=== PATIENT | female | born 1975 | race Caucasian/White ===

== ENCOUNTER 2019-02-15 11:34 | Inpatient (IN) | payer MEDICARE, MEDICAID ==
[~2019-02-15] VITALS: Ht 162.6 cm; Wt 92.4 kg
[2019-02-15] MEDS ORDERED: CEFTRIAXONE PMX 1GM/50ML 50 ML IVPB ONE (12:00)
[2019-02-15] MEDS ORDERED: SODIUM CHLORIDE FLUSH 10ML SYR IVF ONE (12:00)
--- NOTE | 2019-02-15 12:00 | NUR ---
PT TO ED FOR RECURRING BLE CELLULITIS FOLLOWING BROWN RECLUSE BITE LAST FALL. 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 PT STATES SHE THINKS SWELLING AND CELLULITIS IS DUE TO CUTS ON BOTTOM OF FEET. PT COMPLETED PRESCRIBED ABX YESTERDAY WTIHOUT INMPROVEMENT. PT CONNECTED TO MONITORS. VSS. EDMD PRESENT FOR ASSESSMENT. AWAITING ORDERS.
[2019-02-15 12:25] LABS: BASOPHILS # (AUTO) 0.02 x10^3/uL (0-0.1); BASOPHILS % (AUTO) 0 % (0-1); EOSINOPHILS % (AUTO) 0 % (1-7); LYMPHOCYTES # (AUTO) 2.35 x10^3/uL (1-3.4); LYMPHOCYTES % (AUTO) 39 % (22-44); MD NO; MEAN CORPUSCULAR HEMOGLOBIN 26.9 pg (27.0-34.8); MEAN CORPUSCULAR HGB CONC 32.1 g/dL (32.4-35.8); MEAN CORPUSCULAR VOLUME 83.8 fL (80-100); MEAN PLATELET VOLUME 8.2 fL (7.4-10.4); MONOCYTES # (AUTO) 0.49 x10^3/uL (0.2-0.8); MONOCYTES % (AUTO) 8 % (2-9); NEUTROPHILS # (AUTO) 3.15 x10^3/uL (1.8-6.8); NEUTROPHILS % (AUTO) 53 % (42-75); PLATELET COUNT 416 x10^3/uL (130-400); RED BLOOD COUNT 3.86 x10^6/uL (3.82-5.3); RED CELL DISTRIBUTION WIDTH 16.6 % (9.6-15.2)
[2019-02-15] MEDS ORDERED: LEVO25TA4 PO (12:26)
[2019-02-15] MEDS ORDERED: TIZA4TAB PO (12:26)
[2019-02-15] MEDS ORDERED: OMEP20TA62 PO (12:26)
[2019-02-15] MEDS ORDERED: LURA20TA PO (12:26)
[2019-02-15] MEDS ORDERED: METO25TA35 PO (12:26)
[2019-02-15] MEDS ORDERED: NALO0.4D2 PO (12:26)
[2019-02-15] MEDS ORDERED: PREG150C PO (12:26)
[2019-02-15] MEDS ORDERED: OLAN5TAB9 PO (12:26)
[2019-02-15] MEDS ORDERED: FURO20TA3 PO (12:26)
[2019-02-15] MEDS ORDERED: GABA300C10 PO (12:26)
[2019-02-15] MEDS ORDERED: AMIT150T PO (12:26)
[2019-02-15] MEDS ORDERED: POTA20TA6 PO (12:26)
--- NOTE | 2019-02-15 12:27 | NUR ---
PT RESTING IN ROOM. IV ESTABLISHED. LABS AND BC X2 COLLECTED. AWAITING RESULTS. NO NEEDS EXPRESSED. CALL LIGHT WITHIN REACH. PLAN TO ADM.
[2019-02-15 12:34] LABS: ALBUMIN 3.2 g/dL (3.4-5.0); ANION GAP 6 mmol/L (5-15); CALCIUM 8.7 mg/dL (8.5-10.1); CHLORIDE 107 mmol/L (98-107); CREATININE 0.84 mg/dL (0.55-1.02)
[2019-02-15] MEDS ORDERED: CEFTRIAXONE PMX 1GM/50ML 50 ML ONE (12:35)
--- NOTE | 2019-02-15 13:42 | NUR ---
PT RESTING IN ROOM. NO NEEDS EXPRESSED. CALL LIGHT WITHIN REACH. PLAN TO ADM. AWAITING ROOM ASSIGNMENT.
[2019-02-15] MEDS ORDERED: POLYETHYLENE GLYCOL 17 GM PACKET PO PRN (14:00)
[2019-02-15] MEDS ORDERED: ACETAMINOPHEN 325 MG TABLET PO PRN (14:00)
[2019-02-15] MEDS ORDERED: NALOXONE 0.4 MG/ML, 1ML SQ PRN (14:00)
[2019-02-15] MEDS ORDERED: ENALAPRILAT 1.25 MG/ML, 2ML IVPush PRN (14:00)
[2019-02-15] MEDS ORDERED: ONDANSETRON ODT 4 MG PO PRN (14:00)
[2019-02-15 14:21] LABS: HCT (SEDRATE) 32.4 % (34.6-47.8)
--- NOTE | 2019-02-15 14:37 | NUR ---
PT RESTING IN ROOM. NO NEEDS EXPRESSED. CALL LIGHT WITHIN REACH. PLAN TO ADM. AWAITING ROOM ASSIGNMENT.
--- NOTE | 2019-02-15 14:57 | NUR ---
report to jocy vazquez. pt being transferred now.
[2019-02-15 15:03] VITALS: BP 132/90
[2019-02-15] MEDS: TIZANIDINE 4MG TABLET PO SCH ×2 (17:01→22:44)
[2019-02-15] MEDS: PREGABALIN 150 MG CAPSULE PO SCH ×2 (17:01→22:44)
[2019-02-15] MEDS: ENOXAPARIN 40 MG/0.4 ML SQ SCH (17:01)
[2019-02-15] MEDS ORDERED: LEFLUNOMIDE 20 MG TABLET ONE (18:03)
[2019-02-15] MEDS: LURASIDONE 20 MG TABLET PO SCH (18:15)
[2019-02-15 20:34] VITALS: BP 128/87
[2019-02-15] MEDS: OMEPRAZOLE 20 MG CAPSULE.DR PO SCH (21:40)
[2019-02-15] MEDS: AMITRIPTYLINE 75 MG TABLET PO SCH (21:40)
[2019-02-15 23:00] VITALS: BP 119/83
[2019-02-16 01:20] VITALS: BP 100/75
[2019-02-16 05:13] LABS: ANION GAP 1 mmol/L (5-15); CALCIUM 8.7 mg/dL (8.5-10.1); CHLORIDE 106 mmol/L (98-107); CREATININE 0.78 mg/dL (0.55-1.02)
[2019-02-16 05:16] LABS: MEAN PLATELET VOLUME 8.4 fL (7.4-10.4); PLATELET COUNT 343 x10^3/uL (130-400); RED BLOOD COUNT 3.51 x10^6/uL (3.82-5.3); RED CELL DISTRIBUTION WIDTH 17.1 % (9.6-15.2)
[2019-02-16 05:48] VITALS: BP 123/81
[2019-02-16] MEDS: METOPROLOL TARTRATE 25 MG TABLET PO SCH ×2 (05:51→16:30)
[2019-02-16 05:53] LABS: BASOPHILS # (AUTO) 0.02 x10^3/uL (0-0.1); BASOPHILS % (AUTO) 1 % (0-1); EOSINOPHILS # (AUTO) 0.01 x10^3/uL (0-0.4); EOSINOPHILS % (AUTO) 0 % (1-7); LYMPHOCYTES # (AUTO) 1.84 x10^3/uL (1-3.4); LYMPHOCYTES % (AUTO) 54 % (22-44); MD SCAN; MONOCYTES # (AUTO) 0.33 x10^3/uL (0.2-0.8); MONOCYTES % (AUTO) 10 % (2-9); NEUTROPHILS # (AUTO) 1.19 x10^3/uL (1.8-6.8); NEUTROPHILS % (AUTO) 35 % (42-75)
[2019-02-16 07:16] VITALS: BP 112/77
[2019-02-16] MEDS: TIZANIDINE 4MG TABLET PO SCH ×4 (08:04→21:16)
[2019-02-16] MEDS: POTASSIUM CHLORIDE 20 MEQ TAB.ER.PRT PO SCH (08:04)
[2019-02-16] MEDS: PREGABALIN 150 MG CAPSULE PO SCH ×3 (08:04→21:16)
[2019-02-16] MEDS: OMEPRAZOLE 20 MG CAPSULE.DR PO SCH ×2 (08:04→21:16)
[2019-02-16] MEDS: FUROSEMIDE 40 MG TABLET PO SCH (08:04)
[2019-02-16] MEDS: LEVOTHYROXINE 25 MCG TABLET PO SCH (08:05)
[2019-02-16] MEDS ORDERED: FUROSEMIDE 20 MG/2 ML IV ONE (08:30)
[2019-02-16] MEDS ORDERED: GABAPENTIN 300 MG CAPSULE PO SCH (09:00)
[2019-02-16 13:06] VITALS: BP 110/59
[2019-02-16] MEDS ORDERED: CEFTRIAXONE PMX 2GM/50ML 50 ML IV SCH (14:00)
[2019-02-16] MEDS: ENOXAPARIN 40 MG/0.4 ML SQ SCH (16:30)
[2019-02-16 18:57] VITALS: BP 123/83
[2019-02-16] MEDS: LURASIDONE 20 MG TABLET PO SCH (21:16)
[2019-02-16] MEDS: AMITRIPTYLINE 75 MG TABLET PO SCH (21:17)
[2019-02-17 02:32] VITALS: BP 118/81
[2019-02-17] MEDS: TIZANIDINE 4MG TABLET PO SCH ×2 (05:51→12:08)
[2019-02-17] MEDS: METOPROLOL TARTRATE 25 MG TABLET PO SCH (05:51)
[2019-02-17 07:02] VITALS: BP 124/76
[2019-02-17] MEDS: FUROSEMIDE 40 MG TABLET PO SCH (09:35)
[2019-02-17] MEDS: LEVOTHYROXINE 25 MCG TABLET PO SCH (09:35)
[2019-02-17] MEDS: POTASSIUM CHLORIDE 20 MEQ TAB.ER.PRT PO SCH (09:35)
[2019-02-17] MEDS: PREGABALIN 150 MG CAPSULE PO SCH (09:35)
[2019-02-17] MEDS: OMEPRAZOLE 20 MG CAPSULE.DR PO SCH (09:35)
== END 2019-02-17 16:19 | disposition home health service (06) | DRG 300 ==
LOC: ED 13:40 → 3NW 13:41 → 3NE 02-16 00:05
PROVIDERS: ADMIT Family Medicine; ATTEND Family Medicine
DX: I87.2 Venous insufficiency (chronic) (peripheral) (principal); L03.116 Cellulitis of left lower limb; L03.115 Cellulitis of right lower limb; E03.9 Hypothyroidism, unspecified; F31.9 Bipolar disorder, unspecified; G47.00 Insomnia, unspecified; G89.29 Other chronic pain; I10 Essential (primary) hypertension; I87.8 Other specified disorders of veins; K21.9 Gastro-esophageal reflux disease without esophagitis; Z79.891 Long term (current) use of opiate analgesic; Z81.8 Family history of other mental and behavioral disorders; Z86.14 Personal history of Methicillin resistant Staphylococcus aureus infection; Z88.8 Allergy status to other drugs, medicaments and biological substances
CPT/HCPCS: 36415; 80048; 82040; 83605; 85025; 85651; 86140; 87040; 96374; 99285; G0378; J0696; J1650; Q0162; J1940

== ENCOUNTER 2019-03-01 15:02 | Emergency (ER) | payer MEDICARE, MEDICAID ==
[~2019-03-01] VITALS: Ht 162.6 cm; Wt 98.5 kg
[~2019-03-01 15:02] MED LIST: AMIT150T PO; FURO20TA3 PO; GABA300C10 PO; LEVO25TA4 PO; LURA20TA PO; METO25TA35 PO; NALO0.4D2 PO; OLAN5TAB9 PO; OMEP20TA62 PO; POTA20TA6 PO; PREG150C PO; TIZA4TAB PO
--- NOTE | 2019-03-01 15:31 | NUR ---
R FAMILY MED DR CARMICHAEL SENT PT HERE DUE TO LE SWELLING. PT HAS AN INTERNAL PAIN PUMP AND IS HAVING A DIFFICULT TIME STAYING AWAKE. PT IS HARD TO UNDERSTAND BECAUSE HER SPEECH IS LOW AND SLURRED. DR LUCIA ROUNDED. NAD. SERVICE DOG AT BEDSIDE.
[2019-03-01] MEDS ORDERED: vitamin d (15:53)
[2019-03-01] MEDS ORDERED: ONDA4TAB7 PO (15:55)
[2019-03-01] MEDS ORDERED: GABA300C10 PO (15:55)
[2019-03-01] MEDS ORDERED: voltaren (15:56)
[2019-03-01 15:57] LABS: BASOPHILS # (AUTO) 0.02 x10^3/uL (0-0.1); BASOPHILS % (AUTO) 1 % (0-1); EOSINOPHILS # (AUTO) 0.01 x10^3/uL (0-0.4); EOSINOPHILS % (AUTO) 0 % (1-7); LYMPHOCYTES # (AUTO) 1.62 x10^3/uL (1-3.4); LYMPHOCYTES % (AUTO) 37 % (22-44); MD NO; MEAN CORPUSCULAR HEMOGLOBIN 27.7 pg (27.0-34.8); MEAN CORPUSCULAR HGB CONC 33.1 g/dL (32.4-35.8); MEAN CORPUSCULAR VOLUME 83.7 fL (80-100); MEAN PLATELET VOLUME 8.6 fL (7.4-10.4); MONOCYTES % (AUTO) 9 % (2-9); NEUTROPHILS # (AUTO) 2.35 x10^3/uL (1.8-6.8); NEUTROPHILS % (AUTO) 53 % (42-75); PLATELET COUNT 280 x10^3/uL (130-400); RED BLOOD COUNT 3.66 x10^6/uL (3.82-5.3); RED CELL DISTRIBUTION WIDTH 16.7 % (9.6-15.2)
[2019-03-01] MEDS ORDERED: morphine (16:01)
[2019-03-01 16:05] LABS: INTERNATIONAL NORMALIZED RATIO 0.97 (0.93-1.1); PROTHROMBIN TIME 10.2 Seconds (9.6-11.5)
[2019-03-01 16:06] LABS: ALANINE AMINOTRANSFERASE 78 U/L (12-78); ALBUMIN 3.4 g/dL (3.4-5.0); ANION GAP 9 mmol/L (5-15); CALCIUM 8.5 mg/dL (8.5-10.1); CHLORIDE 104 mmol/L (98-107); CREATININE 0.84 mg/dL (0.55-1.02)
[2019-03-01 16:10] LABS: ALKALINE PHOSPHATASE 291 U/L (45-117); BILIRUBIN,TOTAL 0.4 mg/dL (0.2-1.0); TOTAL PROTEIN 7.5 g/dL (6.4-8.2)
[2019-03-01 16:55] VITALS: BP 140/86
--- NOTE | 2019-03-01 16:56 | NUR ---
Patient is resting comfortably in bed. Vital Signs within normal limits.
== END 2019-03-01 17:45 | disposition home or self-care (01) ==
LOC: ED 17:39
DX: R60.0 Localized edema (principal); G89.29 Other chronic pain; E03.9 Hypothyroidism, unspecified; K21.9 Gastro-esophageal reflux disease without esophagitis; F31.9 Bipolar disorder, unspecified
CPT/HCPCS: 36415; 80053; 83880; 85025; 85610; 85730; 93005; 93970; 99284

== ENCOUNTER 2019-06-14 05:02 | Emergency (ER) | payer MEDICARE, MEDICAID ==
[~2019-06-14] VITALS: Ht 162.6 cm; Wt 105.0 kg
[~2019-06-14 05:02] MED LIST changes: +ONDA4TAB7 PO; -TIZA4TAB PO; +TIZA4TAB2 PO; +morphine; +vitamin d; +voltaren
[2019-06-14 06:22] LABS: BASOPHILS # (AUTO) 0.01 x10^3/uL (0-0.1); BASOPHILS % (AUTO) 0 % (0-1); EOSINOPHILS # (AUTO) 0.09 x10^3/uL (0-0.4); EOSINOPHILS % (AUTO) 2 % (1-7); LYMPHOCYTES # (AUTO) 0.86 x10^3/uL (1-3.4); LYMPHOCYTES % (AUTO) 16 % (22-44); MD NO; MEAN CORPUSCULAR HEMOGLOBIN 25.5 pg (27.0-34.8); MEAN CORPUSCULAR VOLUME 79.6 fL (80-100); MEAN PLATELET VOLUME 8.8 fL (7.4-10.4); MONOCYTES # (AUTO) 0.31 x10^3/uL (0.2-0.8); MONOCYTES % (AUTO) 6 % (2-9); NEUTROPHILS # (AUTO) 4.24 x10^3/uL (1.8-6.8); NEUTROPHILS % (AUTO) 77 % (42-75); PLATELET COUNT 239 x10^3/uL (130-400); RED BLOOD COUNT 4.44 x10^6/uL (3.82-5.3); RED CELL DISTRIBUTION WIDTH 18.3 % (9.6-15.2)
[2019-06-14 06:33] LABS: ALBUMIN 3.4 g/dL (3.4-5.0); ANION GAP 6 mmol/L (5-15); CALCIUM 8.5 mg/dL (8.5-10.1); CHLORIDE 104 mmol/L (98-107)
[2019-06-14 06:42] LABS: ALANINE AMINOTRANSFERASE 63 U/L (12-78); ALKALINE PHOSPHATASE 198 U/L (45-117); BILIRUBIN,TOTAL 0.3 mg/dL (0.2-1.0); CREATININE 1.14 mg/dL (0.55-1.02); TOTAL PROTEIN 7.9 g/dL (6.4-8.2)
[2019-06-14 06:43] LABS: SALICYLATE LEVEL < 1.7 mg/dL (2.8-20.0)
--- NOTE | 2019-06-14 07:03 | NUR ---
LATE NOTE ENTRY DUE TO PT CARE. Received report from GOSIA Snell. All questions answered. Assuming care of pt at this time. Pt resting on gurney connected to NIBP cuff, continous pulse ox, and heading machine operator. Call light within reach. Pt c/o "pain and cramping starting to creep up again." EDMD at bedside. NADN. No other needs expressed. Addendum: 06/14/19 at 0705 by [facility] Prior note charted on wrong pt.
--- NOTE | 2019-06-14 07:06 | NUR ---
Prior note charted on wrong pt.
--- NOTE | 2019-06-14 07:06 | NUR ---
LATE NOTE ENTRY DUE TO PT CARE. Pt resting with eyes closed supine on gurney. Pt arousable to physical stimuli. Pt has unlabored respirations with even chest rise and fall. NADN. Pt connected to NIBP cuff, continous pulse ox, and traffic monitor specialist. Bedrails up x 2 and call light within reach. No needs expressed at this time.
[2019-06-14 07:19] LABS: AMPHETAMINE SCREEN, URINE Negative (Negative); BARBITURATE SCREEN, URINE Negative (Negative); BENZODIAZEPINE SCREEN, URINE Negative (Negative); CANNABINOID SCREEN, URINE Positive (Negative); COCAINE SCREEN, URINE Negative (Negative); METHADONE SCREEN, URINE Negative (Negative); OPIATE SCREEN, URINE Positive (Negative)
[2019-06-14 07:23] LABS: MICROSCOPIC INDICATED
[2019-06-14 07:29] LABS: CULTURE INDICATED? YES
--- NOTE | 2019-06-14 08:53 | NUR ---
Pt remains asleep supine on gurney with bedrails up x 2 and call light within reach. Pt remains connected to NIBP cuff, continous pulse ox, and casino floor runner. NADN. No needs expressed.
[2019-06-14 09:31] VITALS: BP 124/85
--- NOTE | 2019-06-14 10:24 | NUR ---
Pt AOX4 and ambulates with steady gait and balance. Pt requesting to speak to MD regarding, "I think I have celulitis coming back in my legs." EDMD aware.
--- NOTE | 2019-06-14 10:49 | NUR ---
Provided pt taxi voucher. Provided pt d/c paperwork. Patient given discharge instructions and they have confirmed that they understand the instructions. Pt getting dressed in ED room. NADN. No other needs expressed.
== END 2019-06-14 10:52 | disposition home or self-care (01) ==
LOC: ED 10:30
DX: G93.40 Encephalopathy, unspecified (principal); R55 Syncope and collapse
CPT/HCPCS: 36415; 70450; 80053; 80307; 81001; 82140; 83735; 84439; 84443; 85025; 87086; 87147; 93005; 99284

== ENCOUNTER 2019-08-14 18:42 | Emergency (ER) | payer MEDICARE, MEDICAID ==
[~2019-08-14] VITALS: Ht 162.6 cm; Wt 101.4 kg
[~2019-08-14 18:42] MED LIST changes: +GABA800T5 PO; +LURA60TA PO
--- NOTE | 2019-08-14 19:22 | NUR ---
PT C/O RIGHT SHOULDER AND ELBOW PAIN STARTING THIS AM. PT DENIES TRAUMA, PT REPORTS HX OF NEUROPATHIES AND SPINAL SURGERIES. REPORTS PAIN WITH MOVEMENT, ROM LIMITED WITH STIFFNESS. PT PLACED ON MONITORING, BED IN LOW POSITION, X2 RAILS RAISED, CALL LIGHT WITHIN REACH.
--- NOTE | 2019-08-14 19:24 | NUR ---
IMAGING IN ROOM AT THIS TIME.
[2019-08-14] MEDS ORDERED: SODIUM CHLORIDE FLUSH 10ML SYR IVF ONE (19:30)
--- NOTE | 2019-08-14 19:52 | NUR ---
LAB IN ROOM AT THIS TIME.
--- NOTE | 2019-08-14 20:02 | NUR ---
PT UPDATED ON POC, AWAITING LABS AND IMAGING RESULTS. ALL MONITORING IN PLACE, CALL LIGHT WITHIN REACH, FAMILY AT BS FOR SUPPORT.
[2019-08-14 20:03] LABS: BASOPHILS # (AUTO) 0.06 x10^3/uL (0-0.1); BASOPHILS % (AUTO) 1 % (0-1); EOSINOPHILS # (AUTO) 0.14 x10^3/uL (0-0.4); EOSINOPHILS % (AUTO) 3 % (1-7); LYMPHOCYTES # (AUTO) 1.77 x10^3/uL (1-3.4); LYMPHOCYTES % (AUTO) 30 % (22-44); MD NO; MEAN CORPUSCULAR HEMOGLOBIN 26.3 pg (27.0-34.8); MEAN CORPUSCULAR HGB CONC 31.8 g/dL (32.4-35.8); MEAN CORPUSCULAR VOLUME 82.5 fL (80-100); MEAN PLATELET VOLUME 8.1 fL (7.4-10.4); MONOCYTES # (AUTO) 0.57 x10^3/uL (0.2-0.8); MONOCYTES % (AUTO) 10 % (2-9); NEUTROPHILS # (AUTO) 3.34 x10^3/uL (1.8-6.8); NEUTROPHILS % (AUTO) 57 % (42-75); PLATELET COUNT 303 x10^3/uL (130-400); RED BLOOD COUNT 4.13 x10^6/uL (3.82-5.3); RED CELL DISTRIBUTION WIDTH 18.5 % (9.6-15.2)
[2019-08-14 20:13] LABS: ALANINE AMINOTRANSFERASE 91 U/L (12-78); ALBUMIN 3.1 g/dL (3.4-5.0); ANION GAP 6 mmol/L (5-15); C-REACTIVE PROTEIN, QUANT 0.76 mg/dL (0.02-0.49); CALCIUM 8.7 mg/dL (8.5-10.1); CHLORIDE 109 mmol/L (98-107); CREATININE 0.82 mg/dL (0.55-1.02)
[2019-08-14 20:15] LABS: ALKALINE PHOSPHATASE 332 U/L (45-117); BILIRUBIN,TOTAL 0.2 mg/dL (0.2-1.0); TOTAL PROTEIN 7.2 g/dL (6.4-8.2)
[2019-08-14] MEDS ORDERED: CLINDAMYCIN 150 MG/ML, 6ML IM ONE (21:30)
[2019-08-14] MEDS ORDERED: CLINDAMYCIN PMX 600MG/50ML 0 ML ONE (21:54)
[2019-08-14] MEDS ORDERED: CLINDAMYCIN 150 MG/ML, 6ML ONE (22:18)
[2019-08-14] MEDS ORDERED: DIPH,PERTUSS(ACELL),TET VAC/PF 0.5 ML IM-VACC ONE ×2 (22:20→22:30)
[2019-08-14 22:46] VITALS: BP 155/89
== END 2019-08-14 22:47 | disposition home or self-care (01) ==
LOC: ED 21:01
DX: L03.113 Cellulitis of right upper limb (principal); K21.9 Gastro-esophageal reflux disease without esophagitis; G89.29 Other chronic pain; Z72.89 Other problems related to lifestyle
CPT/HCPCS: 36415; 73030; 80053; 83605; 84145; 85025; 85651; 86140; 87040; 90471; 90715; 96372; 99284; S0077

== ENCOUNTER 2019-08-18 23:09 | Inpatient (IN) | payer MEDICARE, MEDICAID ==
[~2019-08-18] VITALS: Ht 154.9 cm; Wt 99.6 kg
[2019-08-18] MEDS ORDERED: ALBUTEROL/IPRATROPIUM 2.5MG/0.5MG, 3 ML ONE (23:27)
[2019-08-18] MEDS ORDERED: methylPREDNISolone SOD SUCC 125 MG/2 ML IV ONE (23:30)
[2019-08-18 23:52] LABS: MEAN CORPUSCULAR HEMOGLOBIN 26.3 pg (27.0-34.8); MEAN CORPUSCULAR HGB CONC 31.6 g/dL (32.4-35.8); MEAN CORPUSCULAR VOLUME 83.2 fL (80-100); MEAN PLATELET VOLUME 8.5 fL (7.4-10.4); PLATELET COUNT 335 x10^3/uL (130-400); RED BLOOD COUNT 4.23 x10^6/uL (3.82-5.3); RED CELL DISTRIBUTION WIDTH 18.7 % (9.6-15.2)
[2019-08-19 00:03] LABS: ANION GAP 8 mmol/L (5-15); CALCIUM 8.9 mg/dL (8.5-10.1); CHLORIDE 105 mmol/L (98-107); CREATININE 1.55 mg/dL (0.55-1.02)
[2019-08-19 00:04] LABS: ALANINE AMINOTRANSFERASE 66 U/L (12-78); ALBUMIN 3.1 g/dL (3.4-5.0)
[2019-08-19 00:08] LABS: ALKALINE PHOSPHATASE 206 U/L (45-117); BILIRUBIN,TOTAL 0.4 mg/dL (0.2-1.0); TOTAL PROTEIN 8.1 g/dL (6.4-8.2); TROPONIN I < 0.015 ng/mL (0.000-0.045)
[2019-08-19 00:16] LABS: MD YES
[2019-08-19 00:18] LABS: BAND#(MANUAL) 0.14 x10^3/uL; BANDS%(MANUAL) 1 % (0-7); LYMPH#(MANUAL) 2.19 x10^3/uL (1-3.4); LYMPHS% (MANUAL) 16 % (22-44); MONOS#(MANUAL) 0.55 x10^3/uL (0.3-2.7); MONOS% (MANUAL) 4 % (2-9); SEG#(MANUAL) 10.82 x10^3/uL (1.8-6.8); SEGS% (MANUAL) 79 % (42-75)
[2019-08-19 00:19] LABS: <PLATELET ESTIMATE> ADEQUATE; <PLT MORPHOLOGY> NORMAL PLT MORPH; ANISOCYTOSIS 1+
[2019-08-19] MEDS ORDERED: CEFTRIAXONE PMX 1GM/50ML 50 ML ONE (00:30)
[2019-08-19] MEDS ORDERED: AZITHROMYCIN 500 MG in SODIUM CHLORIDE 0.9% 250 ML IV ONE (00:30)
[2019-08-19] MEDS ORDERED: CEFTRIAXONE PMX 1GM/50ML 50 ML IV ONE (00:30)
[2019-08-19] MEDS ORDERED: methylPREDNISolone SOD SUCC 125 MG/2 ML ONE (00:30)
--- NOTE | 2019-08-19 00:33 | NUR ---
PT BECOMING MORE SOMULENT, REQUIRING CONTINUAL PAINFUL STIMULI TO WAKE UP, EVEN WITH THIS, PT RESPONSE IS MINIMAL. ERP AWARE, ORDERS PLACED. NO WOUNDS ON HEAD NOTED.
[2019-08-19] MEDS ORDERED: NALOXONE 1 MG/ML, 2ML ONE (01:33)
[2019-08-19] MEDS ORDERED: ONDANSETRON 2MG/ML, 2ML ONE (01:36)
[2019-08-19] MEDS ORDERED: LORazepam 2 MG/ML, 1ML ONE (01:39)
--- NOTE | 2019-08-19 01:40 | NUR ---
TASK RN: TAKEN TO CT ON MONITORING. PT WITH MILDLY LABORED RESPIRATIONS AND NOT RESPONSIVE TO NOXIOUS STIMULI. RR 12, SPO2 >90% ON 10L BY OXYMASK. ERP AWARE. PT GIVEN 2MG NARCAN WITH POSITIVE EFFECT. PT NOW YELLING "I THINK I'M BROKEN". GIVEN 2MG ZOFRAN AND 1MG ATIVAN. PRIMARY RN AWARE. Addendum: 08/19/19 at 0142 by LWEGROSARIO SECOND ABX INITIATED. BC X2 DRAWN PRIOR TO ADMIN. LITER BOLUS HUNG PER ERP ORDER FOR SBP 90'S.
[2019-08-19] MEDS ORDERED: LORazepam 2 MG/ML, 1ML IVPush ONE ×2 (02:00→07:00)
[2019-08-19] MEDS ORDERED: ONDANSETRON 2MG/ML, 2ML IVPush ONE (02:00)
[2019-08-19] MEDS ORDERED: NALOXONE 1 MG/ML, 2ML IVPush ONE (02:00)
--- NOTE | 2019-08-19 02:00 | NUR ---
PT ANXIOUS, BABBLING AND RESTLESS AFTER NARCAN ADMIN. PT MEDICATED WITH ORDERED ANTI-ANXIETY. PT FOLLOWING COMMANDS BETTER. PT REPOSITIONED PT NOW WHEEZING AUDIBLY, LUNG SOUNDS ARE CLEAR HOWEVER. PT AWARE OF SELF AND LOCATION. BILAT BEDRAILS UP.
--- NOTE | 2019-08-19 02:39 | NUR ---
HOSPITALIST AT BEDSIDE FOR PATIENT EVALUATION AND TO WRITE ADMISSION ORDERS.
[2019-08-19] MEDS ORDERED: SODIUM CHLORIDE 0.9% 1,000ML IVBOLUS ONE (03:00)
[2019-08-19] MEDS ORDERED: POLYETHYLENE GLYCOL 17 GM PACKET PO PRN (03:00)
[2019-08-19] MEDS ORDERED: IBUPROFEN 600 MG TABLET PO PRN (03:00)
[2019-08-19] MEDS ORDERED: morphine SULFATE 10 MG/ML, 1ML IVPush PRN (03:00)
[2019-08-19] MEDS ORDERED: KETOROLAC 30 MG/1 ML IV PRN (03:00)
[2019-08-19] MEDS ORDERED: LABETALOL 5 MG/ML SYR. (IV ONLY) IVPush PRN (03:00)
[2019-08-19] MEDS ORDERED: ENALAPRILAT 1.25 MG/ML, 2ML IVPush PRN (03:00)
[2019-08-19] MEDS ORDERED: BISACODYL 10 MG SUPP PR PRN (03:00)
[2019-08-19] MEDS ORDERED: ONDANSETRON ODT 4 MG PO PRN (03:00)
--- NOTE | 2019-08-19 03:10 | NUR ---
PATIENT TO XRAY FOR ABDOMINAL XRAY.
--- NOTE | 2019-08-19 03:22 | NUR ---
BACK FROM X RAY. PATIENT STILL ON 10LITERS OXYGEN. VSS.
[2019-08-19] MEDS ORDERED: ALBUTEROL SULFATE 2.5 MG/3 ML NPPB PRN (03:30)
--- NOTE | 2019-08-19 03:40 | NUR ---
JAI CALLED TO MARCE ELISE
[2019-08-19] MEDS ORDERED: NALOXONE 0.4 MG/ML, 1ML ONE (03:57)
[2019-08-19] MEDS ORDERED: NALOXONE 0.4 MG/ML, 1ML IVPush ONE (04:00)
[2019-08-19] MEDS ORDERED: NALOXONE 0.4 MG/ML, 1ML IVPush PRN (04:30)
[2019-08-19] MEDS: METRONIDAZOLE PMX 500MG/100ML 100 ML IV SCH ×3 (05:00→20:45)
[2019-08-19] MEDS: NS + 20MEQ KCL 1,000 ML IV SCH ×2 (05:00→15:26)
[2019-08-19] MEDS: HEPARIN 5,000 UNITS/ML, 1ML SQ SCH ×3 (05:01→20:18)
[2019-08-19 05:25] LABS: AMPHETAMINE SCREEN, URINE Negative (Negative); BARBITURATE SCREEN, URINE Negative (Negative); BENZODIAZEPINE SCREEN, URINE Negative (Negative); CANNABINOID SCREEN, URINE Positive (Negative); COCAINE SCREEN, URINE Negative (Negative); METHADONE SCREEN, URINE Negative (Negative); OPIATE SCREEN, URINE Positive (Negative)
[2019-08-19] MEDS ORDERED: LURA40TA PO (05:57)
[2019-08-19] MEDS ORDERED: AMIT10TA PO (05:57)
[2019-08-19] MEDS ORDERED: LEVOTHYROXINE 25 MCG TABLET PO SCH (06:00)
[2019-08-19] MEDS ORDERED: LURASIDONE HCL 60 MG PO SCH ×2 (06:00→09:00)
[2019-08-19] MEDS ORDERED: benzatropine PO (06:03)
[2019-08-19] MEDS ORDERED: DIPH25CA61 PO (06:03)
[2019-08-19] MEDS ORDERED: CLIN300C8 PO (06:03)
[2019-08-19] MEDS ORDERED: PREG75CA PO (06:03)
[2019-08-19] MEDS ORDERED: TIZA6CAP PO (06:03)
[2019-08-19 08:13] VITALS: BP 141/93
[2019-08-19] MEDS ORDERED: FUROSEMIDE 20 MG TABLET PO SCH (09:00)
[2019-08-19] MEDS ORDERED: GABAPENTIN 400 MG CAPSULE PO SCH (09:00)
[2019-08-19 10:20] VITALS: BP 139/88
[2019-08-19] MEDS: SENNA/DOCUSATE TABLET PO SCH (10:24)
[2019-08-19] MEDS: OMEPRAZOLE 20 MG CAPSULE.DR PO SCH ×2 (10:24→20:18)
[2019-08-19] MEDS: METOPROLOL TARTRATE 25 MG TABLET PO SCH ×2 (10:24→20:18)
[2019-08-19] MEDS: DOCUSATE 100 MG CAPSULE PO PRN ×2 (10:24→20:18)
[2019-08-19 11:57] VITALS: BP 134/87
[2019-08-19 14:26] LABS: RAPID INFLUENZA A Negative (Negative); RAPID INFLUENZA B Negative (Negative)
[2019-08-19] MEDS: LORazepam 1MG TABLET PO PRN (16:24)
[2019-08-19 18:45] VITALS: BP 113/77
[2019-08-19] MEDS ORDERED: AMITRIPTYLINE 50 MG TABLET ONE (20:01)
[2019-08-19] MEDS: AMITRIPTYLINE 75 MG TABLET PO SCH (20:19)
[2019-08-19] MEDS: GABAPENTIN 400 MG CAPSULE PO SCH (21:00)
[2019-08-19] MEDS ORDERED: AMITRIPTYLINE HCL PO SCH (21:00)
[2019-08-20] MEDS: NS + 20MEQ KCL 1,000 ML IV SCH ×2 (01:33→10:49)
[2019-08-20] MEDS: CEFTRIAXONE PMX 2GM/50ML 50 ML IV SCH (01:36)
[2019-08-20 01:59] VITALS: BP 131/88
[2019-08-20 04:48] LABS: BASOPHILS # (AUTO) 0.02 x10^3/uL (0-0.1); BASOPHILS % (AUTO) 0 % (0-1); EOSINOPHILS % (AUTO) 2 % (1-7); LYMPHOCYTES % (AUTO) 18 % (22-44); MD NO; MEAN CORPUSCULAR HEMOGLOBIN 26.8 pg (27.0-34.8); MEAN CORPUSCULAR HGB CONC 31.7 g/dL (32.4-35.8); MEAN CORPUSCULAR VOLUME 84.3 fL (80-100); MONOCYTES # (AUTO) 0.53 x10^3/uL (0.2-0.8); MONOCYTES % (AUTO) 6 % (2-9); NEUTROPHILS # (AUTO) 6.54 x10^3/uL (1.8-6.8); NEUTROPHILS % (AUTO) 74 % (42-75); PLATELET COUNT 273 x10^3/uL (130-400); RED BLOOD COUNT 3.45 x10^6/uL (3.82-5.3); RED CELL DISTRIBUTION WIDTH 18.9 % (9.6-15.2)
[2019-08-20 04:58] LABS: ALBUMIN 2.4 g/dL (3.4-5.0); ANION GAP 5 mmol/L (5-15); CALCIUM 8.3 mg/dL (8.5-10.1); CHLORIDE 112 mmol/L (98-107)
[2019-08-20] MEDS: HEPARIN 5,000 UNITS/ML, 1ML SQ SCH ×3 (05:00→20:30)
[2019-08-20 05:02] LABS: ALANINE AMINOTRANSFERASE 39 U/L (12-78); ALKALINE PHOSPHATASE 145 U/L (45-117); BILIRUBIN,TOTAL 0.4 mg/dL (0.2-1.0); CREATININE 0.57 mg/dL (0.55-1.02); TOTAL PROTEIN 6.4 g/dL (6.4-8.2)
[2019-08-20] MEDS: METRONIDAZOLE PMX 500MG/100ML 100 ML IV SCH ×3 (05:29→20:21)
[2019-08-20] MEDS: LEVOTHYROXINE 25 MCG TABLET PO SCH (06:41)
[2019-08-20] MEDS: TIZANIDINE 4MG TABLET PO SCH ×4 (06:41→20:29)
[2019-08-20] MEDS: GABAPENTIN 400 MG CAPSULE PO SCH ×3 (06:41→20:29)
[2019-08-20 08:16] VITALS: BP 144/94
[2019-08-20] MEDS: LURASIDONE HCL 60 MG PO SCH (09:00)
[2019-08-20] MEDS: OMEPRAZOLE 20 MG CAPSULE.DR PO SCH ×2 (10:50→20:29)
[2019-08-20] MEDS: METOPROLOL TARTRATE 25 MG TABLET PO SCH ×2 (10:50→20:29)
[2019-08-20] MEDS: SENNA/DOCUSATE TABLET PO SCH (10:51)
[2019-08-20] MEDS: AZITHROMYCIN 500 MG TABLET PO SCH (10:51)
[2019-08-20 12:49] VITALS: BP 131/90
[2019-08-20] MEDS: GUAIFENESIN 200 MG TABLET PO SCH ×3 (13:11→20:29)
[2019-08-20 18:54] VITALS: BP 152/90
[2019-08-20] MEDS: AMITRIPTYLINE 75 MG TABLET PO SCH (20:28)
[2019-08-21] MEDS: CEFTRIAXONE PMX 2GM/50ML 50 ML IV SCH (00:55)
[2019-08-21 01:24] VITALS: BP 140/94
[2019-08-21] MEDS ORDERED: NS + 20MEQ KCL 1,000 ML IV SCH (02:44)
[2019-08-21] MEDS: ACETAMINOPHEN 325 MG TABLET PO PRN ×3 (03:42→16:37)
[2019-08-21] MEDS: LORazepam 1MG TABLET PO PRN ×3 (03:48→18:45)
[2019-08-21] MEDS: METRONIDAZOLE PMX 500MG/100ML 100 ML IV SCH ×3 (05:04→21:12)
[2019-08-21] MEDS: TIZANIDINE 4MG TABLET PO SCH ×4 (05:05→21:13)
[2019-08-21] MEDS: LEVOTHYROXINE 25 MCG TABLET PO SCH (05:05)
[2019-08-21] MEDS: HEPARIN 5,000 UNITS/ML, 1ML SQ SCH ×3 (05:06→21:13)
[2019-08-21] MEDS: GUAIFENESIN 200 MG TABLET PO SCH ×4 (06:00→21:13)
[2019-08-21 06:51] LABS: ANION GAP 5 mmol/L (5-15); CALCIUM 8.4 mg/dL (8.5-10.1); CHLORIDE 106 mmol/L (98-107); CREATININE 0.54 mg/dL (0.55-1.02)
[2019-08-21 06:58] LABS: BASOPHILS % (AUTO) 2 % (0-1); EOSINOPHILS # (AUTO) 0.24 x10^3/uL (0-0.4); EOSINOPHILS % (AUTO) 4 % (1-7); LYMPHOCYTES # (AUTO) 1.59 x10^3/uL (1-3.4); LYMPHOCYTES % (AUTO) 23 % (22-44); MD NO; MEAN CORPUSCULAR HGB CONC 31.5 g/dL (32.4-35.8); MEAN CORPUSCULAR VOLUME 82.5 fL (80-100); MEAN PLATELET VOLUME 7.8 fL (7.4-10.4); MONOCYTES # (AUTO) 0.43 x10^3/uL (0.2-0.8); MONOCYTES % (AUTO) 6 % (2-9); NEUTROPHILS # (AUTO) 4.43 x10^3/uL (1.8-6.8); NEUTROPHILS % (AUTO) 65 % (42-75); PLATELET COUNT 307 x10^3/uL (130-400); RED BLOOD COUNT 3.77 x10^6/uL (3.82-5.3); RED CELL DISTRIBUTION WIDTH 18.8 % (9.6-15.2)
[2019-08-21 07:01] VITALS: BP 147/99
[2019-08-21] MEDS: LURASIDONE HCL 60 MG PO SCH ×2 (09:00→18:45)
[2019-08-21] MEDS: OMEPRAZOLE 20 MG CAPSULE.DR PO SCH ×2 (09:05→21:13)
[2019-08-21] MEDS: SENNA/DOCUSATE TABLET PO SCH (09:05)
[2019-08-21] MEDS: METOPROLOL TARTRATE 25 MG TABLET PO SCH ×2 (09:05→21:13)
[2019-08-21] MEDS: AZITHROMYCIN 500 MG TABLET PO SCH (09:06)
[2019-08-21] MEDS: GABAPENTIN 400 MG CAPSULE PO SCH ×3 (09:06→21:13)
[2019-08-21 12:54] VITALS: BP 129/86
[2019-08-21 20:24] VITALS: BP 160/88
[2019-08-21] MEDS: AMITRIPTYLINE 75 MG TABLET PO SCH (21:14)
[2019-08-22] MEDS: CEFTRIAXONE PMX 2GM/50ML 50 ML IV SCH (00:55)
[2019-08-22] MEDS: GUAIFENESIN 200 MG TABLET PO SCH ×4 (05:29→21:41)
[2019-08-22] MEDS: TIZANIDINE 4MG TABLET PO SCH ×4 (05:30→21:42)
[2019-08-22] MEDS: HEPARIN 5,000 UNITS/ML, 1ML SQ SCH ×3 (05:30→21:41)
[2019-08-22] MEDS: LEVOTHYROXINE 25 MCG TABLET PO SCH (05:30)
[2019-08-22] MEDS: METRONIDAZOLE PMX 500MG/100ML 100 ML IV SCH ×3 (05:31→23:49)
[2019-08-22 05:35] VITALS: BP 130/92
[2019-08-22] MEDS: LORazepam 1MG TABLET PO PRN (05:37)
[2019-08-22 06:24] LABS: BASOPHILS # (AUTO) 0.02 x10^3/uL (0-0.1); BASOPHILS % (AUTO) 0 % (0-1); EOSINOPHILS # (AUTO) 0.22 x10^3/uL (0-0.4); EOSINOPHILS % (AUTO) 4 % (1-7); LYMPHOCYTES # (AUTO) 1.76 x10^3/uL (1-3.4); LYMPHOCYTES % (AUTO) 30 % (22-44); MD NO; MEAN CORPUSCULAR HEMOGLOBIN 25.9 pg (27.0-34.8); MEAN CORPUSCULAR HGB CONC 31.9 g/dL (32.4-35.8); MEAN CORPUSCULAR VOLUME 81.1 fL (80-100); MEAN PLATELET VOLUME 7.9 fL (7.4-10.4); MONOCYTES % (AUTO) 7 % (2-9); NEUTROPHILS # (AUTO) 3.54 x10^3/uL (1.8-6.8); NEUTROPHILS % (AUTO) 60 % (42-75); PLATELET COUNT 337 x10^3/uL (130-400); RED BLOOD COUNT 3.86 x10^6/uL (3.82-5.3); RED CELL DISTRIBUTION WIDTH 18.5 % (9.6-15.2)
[2019-08-22 07:10] VITALS: BP 132/89
[2019-08-22] MEDS: SENNA/DOCUSATE TABLET PO SCH (09:20)
[2019-08-22] MEDS: ACETAMINOPHEN 325 MG TABLET PO PRN ×2 (09:20→16:31)
[2019-08-22] MEDS: OMEPRAZOLE 20 MG CAPSULE.DR PO SCH ×2 (09:20→21:42)
[2019-08-22] MEDS: AZITHROMYCIN 500 MG TABLET PO SCH (09:20)
[2019-08-22] MEDS: METOPROLOL TARTRATE 25 MG TABLET PO SCH ×2 (09:20→21:42)
[2019-08-22] MEDS: GABAPENTIN 400 MG CAPSULE PO SCH ×3 (09:20→21:42)
[2019-08-22] MEDS: LURASIDONE HCL 60 MG PO SCH (09:21)
[2019-08-22 13:26] VITALS: BP 133/98
[2019-08-22] MEDS ORDERED: AMITRIPTYLINE 100 MG TABLET PO SCH (21:00)
[2019-08-22] MEDS ORDERED: AMITRIPTYLINE 75 MG TABLET PO SCH (21:00)
[2019-08-22 21:10] VITALS: BP 140/90
[2019-08-23] MEDS: CEFTRIAXONE PMX 2GM/50ML 50 ML IV SCH (01:17)
[2019-08-23 01:32] VITALS: BP 155/99
[2019-08-23] MEDS: HEPARIN 5,000 UNITS/ML, 1ML SQ SCH ×2 (05:35→13:00)
[2019-08-23] MEDS: TIZANIDINE 4MG TABLET PO SCH ×2 (05:35→11:47)
[2019-08-23] MEDS: GABAPENTIN 400 MG CAPSULE PO SCH ×2 (05:35→11:48)
[2019-08-23] MEDS: LEVOTHYROXINE 25 MCG TABLET PO SCH (05:35)
[2019-08-23] MEDS: GUAIFENESIN 200 MG TABLET PO SCH ×2 (05:36→11:47)
[2019-08-23 07:02] VITALS: BP 143/97
[2019-08-23] MEDS: METRONIDAZOLE PMX 500MG/100ML 100 ML IV SCH (08:00)
[2019-08-23] MEDS: SENNA/DOCUSATE TABLET PO SCH (09:22)
[2019-08-23] MEDS: METOPROLOL TARTRATE 25 MG TABLET PO SCH (09:23)
[2019-08-23] MEDS: ACETAMINOPHEN 325 MG TABLET PO PRN (09:23)
[2019-08-23] MEDS: OMEPRAZOLE 20 MG CAPSULE.DR PO SCH (09:23)
[2019-08-23] MEDS: LURASIDONE HCL 60 MG PO SCH (09:23)
[2019-08-23] MEDS: AZITHROMYCIN 500 MG TABLET PO SCH (09:23)
[2019-08-23] MEDS ORDERED: GUAI200T37 PO (11:58)
[2019-08-23] MEDS ORDERED: CEFD300C37 PO (11:58)
[2019-08-23 12:25] VITALS: BP 130/91
== END 2019-08-23 15:58 | disposition home or self-care (01) | DRG 917 ==
LOC: ED 23:56 → EDIP 08-19 03:57 → 4EST 08-19 04:22
PROVIDERS: ADMIT Family Medicine; ATTEND Family Medicine
PROC: 5A09357 Assistance with Respiratory Ventilation, Less than 24 Consecutive Hours, Continuous Positive Airway Pressure (ICD-10-PCS; principal; 2019-08-18)
DX: T40.2X1A Poisoning by other opioids, accidental (unintentional), initial encounter (principal); J18.9 Pneumonia, unspecified organism; J96.01 Acute respiratory failure with hypoxia; Z68.41 Body mass index [BMI] 40.0-44.9, adult; F11.20 Opioid dependence, uncomplicated; I31.3 Pericardial effusion (noninflammatory); N17.9 Acute kidney failure, unspecified; E03.9 Hypothyroidism, unspecified; F31.9 Bipolar disorder, unspecified; F41.9 Anxiety disorder, unspecified; G89.29 Other chronic pain; I87.8 Other specified disorders of veins; I11.0 Hypertensive heart disease with heart failure; K21.9 Gastro-esophageal reflux disease without esophagitis; K59.09 Other constipation; I44.0 Atrioventricular block, first degree; I50.9 Heart failure, unspecified; Y92.89 Other specified places as the place of occurrence of the external cause; Z99.81 Dependence on supplemental oxygen
CPT/HCPCS: 36415; 36600; 70450; 71045; 74018; 80048; 80053; 80307; 82550; 82803; 83605; 83880; 84145; 84484; 85025; 87040; 87400; 93005; 94660; 96365; 96368; 96375; 96376; G0378; J0456; J0696; J1644; J2310; J2405; J3480; J2060; J2930; J7030; J7050

== ENCOUNTER 2019-09-11 12:16 | Emergency (ER) | payer MEDICARE, MEDICAID ==
[~2019-09-11] VITALS: Ht 162.6 cm; Wt 98.0 kg
[~2019-09-11 12:16] MED LIST changes: +AMIT10TA PO; +CEFD300C37 PO; +CLIN300C8 PO; +DIPH25CA61 PO; +GUAI200T37 PO; +LURA40TA PO; +PREG75CA PO; +TIZA6CAP PO; +benzatropine PO
[2019-09-11 12:29] VITALS: BP 172/112
--- NOTE | 2019-09-11 12:55 | NUR ---
PT HERE FOR BLISTERS TO RIGHT ARM. MD AT BEDSIDE ASSESSING PT NOW. NADN. SITTING ON EDGE OF GURNEY IN GOWN. PT AWARE OF POC.
--- NOTE | 2019-09-11 13:04 | NUR ---
WOUND CARE DONE PER MD ORDER. PT AWARE OF DC PLAN. GETTING DRESSED NOW.
== END 2019-09-11 13:25 | disposition home or self-care (01) ==
LOC: ED 13:02
DX: L24.9 Irritant contact dermatitis, unspecified cause (principal)
CPT/HCPCS: 99281

== ENCOUNTER 2019-09-14 15:53 | Emergency (ER) | payer MEDICARE, MEDICAID ==
[~2019-09-14] VITALS: Ht 162.6 cm; Wt 90.0 kg
[2019-09-14 16:04] VITALS: BP 139/77
--- NOTE | 2019-09-14 16:46 | NUR ---
BIB EMS FOR EVIDENTRY LAB DRAW
== END 2019-09-14 17:38 | disposition home or self-care (01) ==
LOC: ED 17:32
DX: Z53.21 Procedure and treatment not carried out due to patient leaving prior to being seen by health care provider (principal)

== ENCOUNTER 2019-12-13 17:15 | Inpatient (IN) | payer MEDICARE, MEDICAID ==
[~2019-12-13] VITALS: Ht 162.6 cm; Wt 104.7 kg
--- NOTE | 2019-12-13 17:25 | NUR ---
ekg and vitals obtained by this tech
[2019-12-13 17:52] LABS: BASOPHILS # (AUTO) 0.02 x10^3/uL (0-0.1); BASOPHILS % (AUTO) 0 % (0-1); EOSINOPHILS # (AUTO) 0.44 x10^3/uL (0-0.4); EOSINOPHILS % (AUTO) 5 % (1-7); LYMPHOCYTES # (AUTO) 1.82 x10^3/uL (1-3.4); LYMPHOCYTES % (AUTO) 21 % (22-44); MD NO; MEAN CORPUSCULAR HEMOGLOBIN 24.6 pg (27.0-34.8); MEAN CORPUSCULAR HGB CONC 31.8 g/dL (32.4-35.8); MEAN CORPUSCULAR VOLUME 77.4 fL (80-100); MEAN PLATELET VOLUME 8.6 fL (7.4-10.4); MONOCYTES # (AUTO) 0.59 x10^3/uL (0.2-0.8); MONOCYTES % (AUTO) 7 % (2-9); NEUTROPHILS # (AUTO) 5.65 x10^3/uL (1.8-6.8); NEUTROPHILS % (AUTO) 66 % (42-75); PLATELET COUNT 325 x10^3/uL (130-400); RED BLOOD COUNT 3.96 x10^6/uL (3.82-5.3); RED CELL DISTRIBUTION WIDTH 17.8 % (9.6-15.2)
[2019-12-13] MEDS ORDERED: LORazepam 1MG TABLET ONE (17:58)
[2019-12-13] MEDS ORDERED: LORazepam 1MG TABLET PO ONE (18:00)
[2019-12-13 18:04] LABS: ALBUMIN 2.9 g/dL (3.4-5.0); ANION GAP 8 mmol/L (5-15); CALCIUM 8.6 mg/dL (8.5-10.1); CHLORIDE 104 mmol/L (98-107)
[2019-12-13 18:07] LABS: TROPONIN I 0.069 ng/mL (0.000-0.045)
--- NOTE | 2019-12-13 18:10 | NUR ---
PT CALLED RN TO ROOM TEARFUL AND STATING "I DIDN'T WANT TO TELL THE DOCTOR BUT BARBARA BEEN SEEING THINGS CRAWLING ON THE GUILLORY AND NUMBERS ARE RUNNING ACROSS THE GUILLORY", RN TOLD PT SHE WOULD MAKE MD AWARE. PA NOTIFIED.
--- NOTE | 2019-12-13 18:19 | NUR ---
TASK RN: PT C/O "FEELING COLD" VERRIFIED TEMP 97.7 ORAL. WARM BLANKETS PROVIDED. CALL LIGHT W/I REACH
--- NOTE | 2019-12-13 18:22 | NUR ---
PT SPO2 84% ON RA
[2019-12-13] MEDS ORDERED: ASPIRIN 81 MG TABLET CHEW PO ONE (19:00)
--- NOTE | 2019-12-13 19:12 | NUR ---
REPORT FROM GOSIA ROMERO.
[2019-12-13] MEDS ORDERED: LACTATED RINGERS 1,000 ML IV SCH (20:00)
[2019-12-13] MEDS ORDERED: NITROGLYCERIN 0.4 MG BOTTLE (25 TABS) SL PRN (20:00)
[2019-12-13] MEDS ORDERED: HEPARIN 5,000 UNITS/ML, 1ML SQ SCH (20:00)
[2019-12-13] MEDS ORDERED: NITROGLYCERIN 0.4 MG/SPRAY SL PRN (20:00)
[2019-12-13] MEDS ORDERED: HYDROcodone/APAP 5/325 TABLET PO PRN (20:00)
[2019-12-13] MEDS ORDERED: IBUPROFEN 600 MG TABLET PO PRN (20:00)
[2019-12-13] MEDS ORDERED: ENALAPRILAT 1.25 MG/ML, 2ML IVPush PRN (20:00)
[2019-12-13] MEDS ORDERED: LABETALOL 5MG/ML, 20ML IVPush PRN (20:00)
[2019-12-13] MEDS ORDERED: ACETAMINOPHEN 325 MG TABLET PO PRN (20:00)
[2019-12-13] MEDS ORDERED: ASPIRIN 81 MG TABLET CHEW ONE (20:08)
[2019-12-13] MEDS ORDERED: HEPARIN 5,000 UNITS/ML, 1ML ONE (20:08)
[2019-12-13] MEDS ORDERED: KETOROLAC 30 MG/1 ML ONE (20:08)
[2019-12-13] MEDS: KETOROLAC 30 MG/1 ML IV PRN (20:15)
--- NOTE | 2019-12-13 20:19 | NUR ---
SPOKE TO PT ABOUT MEDICATION LIST. PT STATES SHE LEFT IT AT HOME. SHE IS CALLING HER SON AT THIS TIME FOR THE LIST. WILL PASS TO THIS NURSE WHEN SHE HAS IT. DENIES ANY OTHER NEEDS OR CONCERNS AT THIS TIME. CALL LIGHT IN REACH.
[2019-12-13 20:21] LABS: PROTHROMBIN TIME 10.6 Seconds (9.6-11.5); TROPONIN I 0.071 ng/mL (0.000-0.045)
[2019-12-13] MEDS ORDERED: ONDANSETRON 4 MG TABLET PO PRN (20:30)
--- NOTE | 2019-12-13 20:41 | NUR ---
PT ON THE PHONE WITH FAMILY FOR MED REQ. PT TO CT AT THIS TIME.
[2019-12-13] MEDS ORDERED: OMNIPAQUE 350 MG/ML, 100ML BOTTLE ONE (20:56)
[2019-12-13] MEDS ORDERED: FUROSEMIDE 20 MG TABLET PO SCH (21:00)
[2019-12-13] MEDS ORDERED: METOPROLOL TARTRATE 25 MG TAB PO SCH (21:00)
--- NOTE | 2019-12-13 21:00 | NUR ---
PT RETURNED FROM CT AT THIS TIME. ON THE PHONE WITH FAMILY AGAIN FOR COMPLETION OF MED REQ. WILL ALERT NURSE WHEN COMPLETE. CALL LIGHT IN REACH.
[2019-12-13 21:03] LABS: % IRON SATURATION 5 % (20-55); IRON LEVEL 24 mcg/dL (50-170); TOTAL IRON BINDING CAPACITY 457 mcg/dL (250-450)
[2019-12-13] MEDS ORDERED: PAIN PUMP (21:24)
[2019-12-13] MEDS ORDERED: MIRT30TA3 PO (21:24)
[2019-12-13] MEDS ORDERED: LEVO50TA5 PO (21:24)
[2019-12-13] MEDS ORDERED: GABA800T5 PO (21:24)
--- NOTE | 2019-12-13 21:30 | NUR ---
MED REQ COMPLETED IN CHART. PT RESTING, DENIES ANY FURTHER NEEDS OR CONCERNS AT THIS TIME.
--- NOTE | 2019-12-13 21:37 | NUR ---
Note carlos in ED - 12/13/19 at 2138 by ANN [facility] CONTACTED, GAVE VERBAL RELEASE FOR PT TO USE HER PAIN PUMP FOR BREAKTHROUGH PAIN CONTROL. ALSO REQUESTING ECHO BE DONE TONIGHT FOR PT DISPOSITION. ECHO PAGED, NO ANSWER. HOUSE SUP NOTIFIED.
--- NOTE | 2019-12-13 22:09 | NUR ---
[facility] CONSULTED FOR DETAILS ON ECHOCARDIOGRAM ORDER.
--- NOTE | 2019-12-13 22:24 | NUR ---
[facility] PAGED FOR CLARIFICATION ON BED PLACEMENT.
--- NOTE | 2019-12-13 22:36 | NUR ---
REPORT TO ADRI SILVA RN. PT UPDATED ON PLAN OF CARE. VERBALIZES UNDERSTANDING, AND DENIES ANY FURTHER NEEDS OR CONCERNS AT THIS TIME. CALL LIGHT IN REACH.
[2019-12-13 22:58] VITALS: BP 124/85
[2019-12-13] MEDS: POTASSIUM CHLORIDE 20 MEQ TAB.ER.PRT PO SCH (23:31)
[2019-12-13] MEDS: ONDANSETRON ODT 4 MG PO PRN (23:31)
[2019-12-13] MEDS ORDERED: HEPARIN 5,000 UNITS/ML, 1ML IV PRN (23:45)
[2019-12-13] MEDS ORDERED: HEPARIN 25,000 UNITS/250ML PMX 250 ML IV PRN (23:45)
[2019-12-13] MEDS ORDERED: HEPARIN 5,000 UNITS/ML, 1ML IV ONE (23:45)
[2019-12-14 01:29] VITALS: BP 113/79
[2019-12-14 02:19] VITALS: BP 106/76
[2019-12-14] MEDS: KETOROLAC 30 MG/1 ML IV PRN ×2 (03:03→14:14)
[2019-12-14] MEDS ORDERED: hydrOXyzine 50MG TABLET PO ONE (05:00)
[2019-12-14 05:01] VITALS: BP 141/89
[2019-12-14 05:53] LABS: BASOPHILS # (AUTO) 0.05 x10^3/uL (0-0.1); BASOPHILS % (AUTO) 1 % (0-1); EOSINOPHILS # (AUTO) 0.43 x10^3/uL (0-0.4); EOSINOPHILS % (AUTO) 5 % (1-7); LYMPHOCYTES # (AUTO) 3.77 x10^3/uL (1-3.4); LYMPHOCYTES % (AUTO) 40 % (22-44); MD NO; MEAN CORPUSCULAR HEMOGLOBIN 24.9 pg (27.0-34.8); MEAN CORPUSCULAR HGB CONC 31.8 g/dL (32.4-35.8); MEAN CORPUSCULAR VOLUME 78.1 fL (80-100); MEAN PLATELET VOLUME 8.9 fL (7.4-10.4); MONOCYTES # (AUTO) 0.78 x10^3/uL (0.2-0.8); MONOCYTES % (AUTO) 8 % (2-9); NEUTROPHILS # (AUTO) 4.41 x10^3/uL (1.8-6.8); NEUTROPHILS % (AUTO) 47 % (42-75); PLATELET COUNT 317 x10^3/uL (130-400); RED BLOOD COUNT 4.21 x10^6/uL (3.82-5.3)
[2019-12-14] MEDS ORDERED: LEVOTHYROXINE 25 MCG TABLET PO SCH (06:00)
[2019-12-14 06:05] LABS: CHLORIDE 106 mmol/L (98-107)
[2019-12-14 06:10] LABS: ANION GAP 9 mmol/L (5-15); CALCIUM 8.8 mg/dL (8.5-10.1); CREATININE 1.06 mg/dL (0.55-1.02)
[2019-12-14 06:18] LABS: AMPHETAMINE SCREEN, URINE Negative (Negative); BARBITURATE SCREEN, URINE Negative (Negative); BENZODIAZEPINE SCREEN, URINE Negative (Negative); CANNABINOID SCREEN, URINE Positive (Negative); COCAINE SCREEN, URINE Negative (Negative); METHADONE SCREEN, URINE Negative (Negative); OPIATE SCREEN, URINE Positive (Negative)
[2019-12-14] MEDS: ONDANSETRON ODT 4 MG PO PRN ×3 (06:34→21:34)
[2019-12-14] MEDS: ASPIRIN 325 MG TABLET EC PO SCH (06:34)
[2019-12-14] MEDS ORDERED: MORPHINE SULFATE 4 MG/ML, 1ML ONE (08:05)
[2019-12-14] MEDS: MORPHINE SULFATE 4 MG/ML, 1ML IVPush PRN ×7 (08:09→21:36)
[2019-12-14 08:41] LABS: TROPONIN I 0.131 ng/mL (0.000-0.045)
[2019-12-14] MEDS ORDERED: ALTEPLASE 10 MG in SODIUM CHLORIDE 0.9% 240 ML IV ONE (09:00)
[2019-12-14] MEDS: PREGABALIN 75 MG CAPSULE PO SCH (09:00)
[2019-12-14] MEDS: POTASSIUM CHLORIDE 20 MEQ TAB.ER.PRT PO SCH ×2 (09:00→21:34)
[2019-12-14 09:23] VITALS: BP 157/89
[2019-12-14] MEDS ORDERED: LIDOCAINE 2%, 20ML ONE (11:02)
[2019-12-14] MEDS ORDERED: FENTANYL PF 100 MCG/2ML ONE ×2 (11:10→11:49)
[2019-12-14] MEDS ORDERED: MIDAZOLAM 1 MG/ML, 2ML ONE ×2 (11:10→11:35)
[2019-12-14] MEDS ORDERED: DIPHENHYDRAMINE 50 MG/ML, 1ML ONE ×2 (12:09→14:57)
[2019-12-14] MEDS ORDERED: SODIUM CHLORIDE 0.9% 1,000 ML IV SCH (12:25)
[2019-12-14] MEDS ORDERED: SODIUM CHLORIDE FLUSH 3ML SYRINGE IVF PRN (12:30)
[2019-12-14] MEDS ORDERED: ONDANSETRON 2MG/ML, 2ML ONE (12:55)
[2019-12-14] MEDS ORDERED: METOPROLOL TARTRATE 25 MG TAB ONE (14:08)
[2019-12-14] MEDS: GABAPENTIN 400 MG CAPSULE PO SCH ×2 (14:13→21:37)
[2019-12-14] MEDS: TIZANIDINE 4MG TABLET PO SCH ×2 (14:17→21:36)
[2019-12-14] MEDS ORDERED: ENALAPRILAT 1.25 MG/ML, 2ML IVPush PRN (15:00)
[2019-12-14] MEDS ORDERED: HYDROmorphone 1 MG/ML, 1ML INJ IV PRN (15:00)
[2019-12-14] MEDS ORDERED: hydrALAzine 20 MG/ML, 1ML IVPush PRN (15:00)
[2019-12-14] MEDS: DIPHENHYDRAMINE 50 MG/ML, 1ML IVPush PRN ×2 (15:06→21:37)
[2019-12-14] MEDS: LURASIDONE 20 MG TABLET PO SCH (16:28)
[2019-12-14] MEDS: FUROSEMIDE 20 MG TABLET PO SCH (17:01)
[2019-12-14] MEDS: METOPROLOL TARTRATE 25 MG TAB PO SCH (17:02)
[2019-12-14] MEDS ORDERED: RIVAROXABAN 20 MG TABLET PO SCH (19:00)
[2019-12-14] MEDS: OMEPRAZOLE 20 MG CAPSULE.DR PO SCH (21:37)
[2019-12-14] MEDS: MIRTAZAPINE 30 MG TAB.RAPDIS PO SCH (21:38)
[2019-12-14 21:44] LABS: BASOPHILS # (AUTO) 0.04 x10^3/uL (0-0.1); BASOPHILS % (AUTO) 1 % (0-1); EOSINOPHILS # (AUTO) 0.04 x10^3/uL (0-0.4); EOSINOPHILS % (AUTO) 1 % (1-7); LYMPHOCYTES # (AUTO) 1.92 x10^3/uL (1-3.4); LYMPHOCYTES % (AUTO) 25 % (22-44); MD NO; MEAN CORPUSCULAR HEMOGLOBIN 24.5 pg (27.0-34.8); MEAN CORPUSCULAR HGB CONC 31.3 g/dL (32.4-35.8); MEAN CORPUSCULAR VOLUME 78.5 fL (80-100); MEAN PLATELET VOLUME 8.8 fL (7.4-10.4); MONOCYTES # (AUTO) 0.67 x10^3/uL (0.2-0.8); MONOCYTES % (AUTO) 9 % (2-9); NEUTROPHILS # (AUTO) 5.07 x10^3/uL (1.8-6.8); NEUTROPHILS % (AUTO) 66 % (42-75); PLATELET COUNT 343 x10^3/uL (130-400); RED CELL DISTRIBUTION WIDTH 17.9 % (9.6-15.2)
[2019-12-15] MEDS: MORPHINE SULFATE 4 MG/ML, 1ML IVPush PRN ×6 (01:22→19:55)
[2019-12-15 04:02] LABS: ANION GAP 6 mmol/L (5-15); CALCIUM 8.6 mg/dL (8.5-10.1); CHLORIDE 108 mmol/L (98-107)
[2019-12-15 04:03] LABS: CREATININE 0.77 mg/dL (0.55-1.02)
[2019-12-15 04:11] LABS: BASOPHILS # (AUTO) 0.08 x10^3/uL (0-0.1); BASOPHILS % (AUTO) 1 % (0-1); EOSINOPHILS # (AUTO) 0.13 x10^3/uL (0-0.4); EOSINOPHILS % (AUTO) 2 % (1-7); LYMPHOCYTES % (AUTO) 30 % (22-44); MD NO; MEAN CORPUSCULAR HEMOGLOBIN 24.8 pg (27.0-34.8); MEAN CORPUSCULAR HGB CONC 31.8 g/dL (32.4-35.8); MEAN CORPUSCULAR VOLUME 77.8 fL (80-100); MONOCYTES # (AUTO) 0.63 x10^3/uL (0.2-0.8); MONOCYTES % (AUTO) 10 % (2-9); NEUTROPHILS # (AUTO) 3.41 x10^3/uL (1.8-6.8); NEUTROPHILS % (AUTO) 57 % (42-75); PLATELET COUNT 308 x10^3/uL (130-400); RED BLOOD COUNT 3.71 x10^6/uL (3.82-5.3); RED CELL DISTRIBUTION WIDTH 17.8 % (9.6-15.2)
[2019-12-15] MEDS: DIPHENHYDRAMINE 50 MG/ML, 1ML IVPush PRN (04:17)
[2019-12-15] MEDS: METOPROLOL TARTRATE 25 MG TAB PO SCH ×2 (05:37→17:00)
[2019-12-15] MEDS: LEVOTHYROXINE 50 MCG TABLET PO SCH (05:37)
[2019-12-15] MEDS: GABAPENTIN 400 MG CAPSULE PO SCH ×4 (05:37→20:54)
[2019-12-15] MEDS: TIZANIDINE 4MG TABLET PO SCH ×4 (05:37→20:55)
[2019-12-15] MEDS: ASPIRIN 325 MG TABLET EC PO SCH (07:38)
[2019-12-15] MEDS: FUROSEMIDE 20 MG TABLET PO SCH ×2 (08:12→16:59)
[2019-12-15] MEDS: LURASIDONE 20 MG TABLET PO SCH (08:12)
[2019-12-15] MEDS: OMEPRAZOLE 20 MG CAPSULE.DR PO SCH ×2 (08:13→20:54)
[2019-12-15] MEDS: PREGABALIN 75 MG CAPSULE PO SCH (08:13)
[2019-12-15] MEDS: POTASSIUM CHLORIDE 20 MEQ TAB.ER.PRT PO SCH ×2 (08:13→20:55)
[2019-12-15 12:59] LABS: BASOPHILS # (AUTO) 0.03 x10^3/uL (0-0.1); BASOPHILS % (AUTO) 1 % (0-1); EOSINOPHILS # (AUTO) 0.21 x10^3/uL (0-0.4); EOSINOPHILS % (AUTO) 4 % (1-7); LYMPHOCYTES % (AUTO) 29 % (22-44); MD NO; MEAN CORPUSCULAR HEMOGLOBIN 24.7 pg (27.0-34.8); MEAN CORPUSCULAR HGB CONC 31.8 g/dL (32.4-35.8); MEAN CORPUSCULAR VOLUME 77.7 fL (80-100); MEAN PLATELET VOLUME 8.8 fL (7.4-10.4); MONOCYTES # (AUTO) 0.53 x10^3/uL (0.2-0.8); MONOCYTES % (AUTO) 9 % (2-9); NEUTROPHILS % (AUTO) 58 % (42-75); PLATELET COUNT 321 x10^3/uL (130-400); RED BLOOD COUNT 3.84 x10^6/uL (3.82-5.3)
[2019-12-15 16:00] VITALS: BP 95/67
[2019-12-15] MEDS: RIVAROXABAN 15 MG TABLET PO SCH (16:59)
[2019-12-15] MEDS: KETOROLAC 30 MG/1 ML IV PRN (16:59)
[2019-12-15] MEDS: ONDANSETRON ODT 4 MG PO PRN (17:00)
[2019-12-15 20:52] VITALS: BP 82/59
[2019-12-15] MEDS: MIRTAZAPINE 30 MG TAB.RAPDIS PO SCH (21:26)
[2019-12-16] MEDS: KETOROLAC 30 MG/1 ML IV PRN ×3 (01:25→18:29)
[2019-12-16 02:09] VITALS: BP 95/75
[2019-12-16] MEDS: MORPHINE SULFATE 4 MG/ML, 1ML IVPush PRN ×2 (02:14→04:44)
[2019-12-16] MEDS: DIPHENHYDRAMINE 50 MG/ML, 1ML IVPush PRN (03:01)
[2019-12-16 05:45] LABS: BASOPHILS # (AUTO) 0.05 x10^3/uL (0-0.1); BASOPHILS % (AUTO) 1 % (0-1); EOSINOPHILS # (AUTO) 0.31 x10^3/uL (0-0.4); EOSINOPHILS % (AUTO) 6 % (1-7); LYMPHOCYTES % (AUTO) 34 % (22-44); MD NO; MEAN CORPUSCULAR HEMOGLOBIN 24.7 pg (27.0-34.8); MEAN CORPUSCULAR HGB CONC 31.7 g/dL (32.4-35.8); MEAN CORPUSCULAR VOLUME 77.8 fL (80-100); MEAN PLATELET VOLUME 8.9 fL (7.4-10.4); MONOCYTES # (AUTO) 0.51 x10^3/uL (0.2-0.8); MONOCYTES % (AUTO) 10 % (2-9); NEUTROPHILS # (AUTO) 2.48 x10^3/uL (1.8-6.8); NEUTROPHILS % (AUTO) 49 % (42-75); PLATELET COUNT 327 x10^3/uL (130-400); RED BLOOD COUNT 3.83 x10^6/uL (3.82-5.3); RED CELL DISTRIBUTION WIDTH 18.1 % (9.6-15.2)
[2019-12-16 05:57] LABS: ANION GAP 7 mmol/L (5-15); CALCIUM 8.8 mg/dL (8.5-10.1); CHLORIDE 101 mmol/L (98-107); CREATININE 1.07 mg/dL (0.55-1.02)
[2019-12-16] MEDS: TIZANIDINE 4MG TABLET PO SCH ×4 (06:07→20:42)
[2019-12-16] MEDS: LEVOTHYROXINE 50 MCG TABLET PO SCH (06:08)
[2019-12-16] MEDS: METOPROLOL TARTRATE 25 MG TAB PO SCH (06:08)
[2019-12-16] MEDS: GABAPENTIN 400 MG CAPSULE PO SCH ×4 (06:08→20:42)
[2019-12-16] MEDS: ASPIRIN 325 MG TABLET EC PO SCH (06:08)
[2019-12-16 06:46] VITALS: BP 94/66
[2019-12-16] MEDS: OMEPRAZOLE 20 MG CAPSULE.DR PO SCH ×2 (08:45→20:41)
[2019-12-16] MEDS: FUROSEMIDE 20 MG TABLET PO SCH (08:45)
[2019-12-16] MEDS: OXYcodone/APAP 5/325MG TABLET PO PRN ×4 (08:45→20:42)
[2019-12-16] MEDS: PREGABALIN 75 MG CAPSULE PO SCH (08:46)
[2019-12-16] MEDS: RIVAROXABAN 15 MG TABLET PO SCH ×2 (08:46→16:36)
[2019-12-16] MEDS: LURASIDONE 20 MG TABLET PO SCH (08:46)
[2019-12-16] MEDS: POTASSIUM CHLORIDE 20 MEQ TAB.ER.PRT PO SCH ×2 (08:46→20:42)
[2019-12-16] MEDS: SODIUM CHLORIDE 0.9% 1,000 ML IV SCH (12:52)
[2019-12-16 14:28] VITALS: BP 89/64
[2019-12-16 20:20] VITALS: BP 112/73
[2019-12-16] MEDS: MIRTAZAPINE 30 MG TAB.RAPDIS PO SCH (20:42)
[2019-12-16] MEDS: TEMAZEPAM 15 MG CAPSULE PO PRN (21:49)
[2019-12-17] VITALS (8 sets, daily range): BP systolic 88–175; BP diastolic 60–93
[2019-12-17] MEDS: OXYcodone/APAP 5/325MG TABLET PO PRN ×5 (01:29→20:11)
[2019-12-17] MEDS: SODIUM CHLORIDE 0.9% 1,000 ML IV SCH (01:33)
[2019-12-17] MEDS: KETOROLAC 30 MG/1 ML IV PRN ×4 (02:27→23:18)
[2019-12-17 05:52] LABS: BASOPHILS % (AUTO) 1 % (0-1); EOSINOPHILS # (AUTO) 0.32 x10^3/uL (0-0.4); EOSINOPHILS % (AUTO) 3 % (1-7); LYMPHOCYTES # (AUTO) 1.69 x10^3/uL (1-3.4); LYMPHOCYTES % (AUTO) 18 % (22-44); MD NO; MEAN CORPUSCULAR HEMOGLOBIN 24.9 pg (27.0-34.8); MEAN CORPUSCULAR HGB CONC 31.6 g/dL (32.4-35.8); MEAN CORPUSCULAR VOLUME 78.7 fL (80-100); MEAN PLATELET VOLUME 8.7 fL (7.4-10.4); MONOCYTES # (AUTO) 0.56 x10^3/uL (0.2-0.8); MONOCYTES % (AUTO) 6 % (2-9); NEUTROPHILS # (AUTO) 6.63 x10^3/uL (1.8-6.8); NEUTROPHILS % (AUTO) 71 % (42-75); PLATELET COUNT 433 x10^3/uL (130-400); RED BLOOD COUNT 4.42 x10^6/uL (3.82-5.3); RED CELL DISTRIBUTION WIDTH 18.5 % (9.6-15.2)
[2019-12-17] MEDS: LEVOTHYROXINE 50 MCG TABLET PO SCH (06:00)
[2019-12-17] MEDS ORDERED: NITROGLYCERIN 0.4 MG/SPRAY SL PRN (06:00)
[2019-12-17] MEDS: GABAPENTIN 400 MG CAPSULE PO SCH ×7 (06:00→20:12)
[2019-12-17] MEDS ORDERED: NITROGLYCERIN 0.4 MG BOTTLE (25 TABS) SL PRN (06:00)
[2019-12-17] MEDS: TIZANIDINE 4MG TABLET PO SCH ×4 (06:00→20:11)
[2019-12-17 06:01] LABS: ANION GAP 8 mmol/L (5-15); CALCIUM 8.8 mg/dL (8.5-10.1); CHLORIDE 104 mmol/L (98-107); CREATININE 0.86 mg/dL (0.55-1.02)
[2019-12-17] MEDS: ONDANSETRON ODT 4 MG PO PRN (06:39)
[2019-12-17] MEDS: ASPIRIN 325 MG TABLET EC PO SCH (07:01)
[2019-12-17] MEDS: DIPHENHYDRAMINE 50 MG/ML, 1ML IVPush PRN (07:01)
[2019-12-17] MEDS: OMEPRAZOLE 20 MG CAPSULE.DR PO SCH ×2 (09:00→20:10)
[2019-12-17] MEDS: LURASIDONE 20 MG TABLET PO SCH (09:00)
[2019-12-17] MEDS: PREGABALIN 75 MG CAPSULE PO SCH (09:00)
[2019-12-17] MEDS: POTASSIUM CHLORIDE 20 MEQ TAB.ER.PRT PO SCH ×2 (09:00→20:11)
[2019-12-17] MEDS ORDERED: OMNIPAQUE 350 MG/ML, 75ML BOTTLE ONE (09:01)
[2019-12-17] MEDS: METOPROLOL TARTRATE 25 MG TAB PO SCH ×2 (09:35→20:15)
[2019-12-17] MEDS: RIVAROXABAN 15 MG TABLET PO SCH ×2 (09:36→17:17)
[2019-12-17] MEDS ORDERED: MORPHINE SULFATE 4 MG/ML, 1ML IV PRN (10:30)
[2019-12-17] MEDS ORDERED: SCOPOLAMINE 1MG PATCH TD ONE (12:00)
[2019-12-17] MEDS ORDERED: DOCUSATE 50 MG/5 ML, 10ML UDC PO PRN (16:30)
[2019-12-17] MEDS: MIRTAZAPINE 30 MG TAB.RAPDIS PO SCH (20:10)
[2019-12-17] MEDS: TEMAZEPAM 15 MG CAPSULE PO PRN (20:15)
[2019-12-18] VITALS: BP 98/62
[2019-12-18] MEDS: OXYcodone/APAP 5/325MG TABLET PO PRN ×5 (00:04→17:22)
[2019-12-18] MEDS: DIPHENHYDRAMINE 50 MG/ML, 1ML IVPush PRN (03:21)
[2019-12-18] MEDS: GABAPENTIN 400 MG CAPSULE PO SCH ×5 (04:28→20:20)
[2019-12-18] MEDS: KETOROLAC 30 MG/1 ML IV PRN (04:28)
[2019-12-18] MEDS: LEVOTHYROXINE 50 MCG TABLET PO SCH (04:29)
[2019-12-18] MEDS: METOPROLOL TARTRATE 25 MG TAB PO SCH ×2 (04:29→17:21)
[2019-12-18] MEDS: TIZANIDINE 4MG TABLET PO SCH ×4 (04:29→20:21)
[2019-12-18] MEDS: ASPIRIN 325 MG TABLET EC PO SCH (04:29)
[2019-12-18 04:33] VITALS: BP 156/94
[2019-12-18 06:00] LABS: MEAN CORPUSCULAR HEMOGLOBIN 24.5 pg (27.0-34.8); MEAN CORPUSCULAR HGB CONC 31.2 g/dL (32.4-35.8); MEAN CORPUSCULAR VOLUME 78.3 fL (80-100); MEAN PLATELET VOLUME 8.9 fL (7.4-10.4); PLATELET COUNT 444 x10^3/uL (130-400); RED BLOOD COUNT 4.04 x10^6/uL (3.82-5.3); RED CELL DISTRIBUTION WIDTH 18.4 % (9.6-15.2)
[2019-12-18 06:02] LABS: ALBUMIN 2.5 g/dL (3.4-5.0); ANION GAP 6 mmol/L (5-15); CALCIUM 8.6 mg/dL (8.5-10.1); CHLORIDE 106 mmol/L (98-107)
[2019-12-18 06:12] LABS: ALANINE AMINOTRANSFERASE 41 U/L (12-78); ALKALINE PHOSPHATASE 483 U/L (45-117); BILIRUBIN,TOTAL 0.5 mg/dL (0.2-1.0); CREATININE 1.02 mg/dL (0.55-1.02); TOTAL PROTEIN 7.4 g/dL (6.4-8.2)
[2019-12-18 06:21] LABS: BASOPHILS # (AUTO) 0.03 x10^3/uL (0-0.1); BASOPHILS % (AUTO) 1 % (0-1); EOSINOPHILS % (AUTO) 5 % (1-7); LYMPHOCYTES # (AUTO) 1.82 x10^3/uL (1-3.4); LYMPHOCYTES % (AUTO) 30 % (22-44); MD SCAN; MONOCYTES # (AUTO) 0.57 x10^3/uL (0.2-0.8); MONOCYTES % (AUTO) 10 % (2-9); NEUTROPHILS # (AUTO) 3.32 x10^3/uL (1.8-6.8); NEUTROPHILS % (AUTO) 55 % (42-75)
[2019-12-18] MEDS: PREGABALIN 75 MG CAPSULE PO SCH (07:42)
[2019-12-18 07:48] VITALS: BP 103/72
[2019-12-18] MEDS: POTASSIUM CHLORIDE 20 MEQ TAB.ER.PRT PO SCH ×2 (08:59→20:08)
[2019-12-18] MEDS: RIVAROXABAN 15 MG TABLET PO SCH ×2 (08:59→17:21)
[2019-12-18] MEDS: OMEPRAZOLE 20 MG CAPSULE.DR PO SCH ×2 (08:59→20:20)
[2019-12-18] MEDS: LURASIDONE 20 MG TABLET PO SCH (09:03)
[2019-12-18] MEDS ORDERED: PREG75CA PO (12:33)
[2019-12-18] MEDS ORDERED: TEMA15CA6 PO (12:33)
[2019-12-18] MEDS ORDERED: RIVA20TA PO (12:33)
[2019-12-18] MEDS ORDERED: SCOP1PAT11 TD (12:33)
[2019-12-18] MEDS ORDERED: FURO20TA3 PO (12:33)
[2019-12-18] MEDS ORDERED: RIVA15TA PO (12:33)
[2019-12-18] MEDS ORDERED: OXYcodone/APAP 5/325MG PO (12:33)
[2019-12-18] MEDS ORDERED: DOCU50LI26 PO (12:33)
[2019-12-18] MEDS: MIRTAZAPINE 30 MG TAB.RAPDIS PO SCH (20:20)
[2019-12-18 20:30] VITALS: BP 128/85
[2020-01-05] MEDS ORDERED: RIVAROXABAN 20 MG TABLET PO SCH (17:00)
== END 2019-12-18 22:18 | disposition home health service (06) | DRG 176 ==
LOC: ED 17:45 → EDIP 18:56 → 5SO 23:03 → CCU 12-14 12:29 → 5SO 12-15 15:40
PROVIDERS: ADMIT Family Medicine; ATTEND Family Medicine
PROC: 3E06317 Introduction of Other Thrombolytic into Central Artery, Percutaneous Approach (ICD-10-PCS; principal; 2019-12-14)
PROC: 4A023N6 Measurement of Cardiac Sampling and Pressure, Right Heart, Percutaneous Approach (ICD-10-PCS; 2019-12-14)
PROC: B2141ZZ Fluoroscopy of Right Heart using Low Osmolar Contrast (ICD-10-PCS; 2019-12-14)
PROC: B31T1ZZ Fluoroscopy of Left Pulmonary Artery using Low Osmolar Contrast (ICD-10-PCS; 2019-12-14)
PROC: B31U1ZZ Fluoroscopy of Pulmonary Trunk using Low Osmolar Contrast (ICD-10-PCS; 2019-12-14)
PROC: B31S1ZZ Fluoroscopy of Right Pulmonary Artery using Low Osmolar Contrast (ICD-10-PCS; 2019-12-14)
PROC: 6A751Z7 Ultrasound Therapy of Other Vessels, Multiple (ICD-10-PCS; 2019-12-14)
DX: I26.99 Other pulmonary embolism without acute cor pulmonale (principal); F19.20 Other psychoactive substance dependence, uncomplicated; I82.433 Acute embolism and thrombosis of popliteal vein, bilateral; D50.9 Iron deficiency anemia, unspecified; K21.9 Gastro-esophageal reflux disease without esophagitis; E03.9 Hypothyroidism, unspecified; F31.9 Bipolar disorder, unspecified; I50.9 Heart failure, unspecified; I11.0 Hypertensive heart disease with heart failure; G89.29 Other chronic pain; M54.9 Dorsalgia, unspecified; G47.30 Sleep apnea, unspecified; G47.00 Insomnia, unspecified; E11.9 Type 2 diabetes mellitus without complications; F41.9 Anxiety disorder, unspecified; I27.81 Cor pulmonale (chronic); I27.29 Other secondary pulmonary hypertension; E66.9 Obesity, unspecified; Z86.14 Personal history of Methicillin resistant Staphylococcus aureus infection; Z83.3 Family history of diabetes mellitus; Z82.49 Family history of ischemic heart disease and other diseases of the circulatory system; Z88.2 Allergy status to sulfonamides; Z88.8 Allergy status to other drugs, medicaments and biological substances; Z91.018 Allergy to other foods; Z79.2 Long term (current) use of antibiotics; Z68.39 Body mass index [BMI] 39.0-39.9, adult; I82.463 Acute embolism and thrombosis of calf muscular vein, bilateral
CPT/HCPCS: 36415; 37211; 71045; 71275; 80048; 80053; 80307; 82040; 83540; 83550; 83735; 83880; 84439; 84443; 84484; 85025; 85384; 85520; 85610; 87081; 93005; 93306; 93970; 99156; 99157; C1769; C1894; G0378; J1644; J1885; J2250; J3010; Q0162; Q9967; J0360; J1200; J2270; J7030

== ENCOUNTER 2019-12-30 16:17 | Inpatient (IN) | payer MEDICARE, MEDICAID ==
[~2019-12-30] VITALS: Ht 162.6 cm; Wt 95.7 kg
[~2019-12-30 16:17] MED LIST changes: +DOCU50LI26 PO; +LEVO50TA5 PO; +MIRT30TA3 PO; +OXYcodone/APAP 5/325MG PO; +PAIN PUMP; +RIVA15TA PO; +RIVA20TA PO; +SCOP1PAT11 TD; +TEMA15CA6 PO
--- NOTE | 2019-12-30 16:44 | NUR ---
PT HAS CO SOB STARTING LAST NIGHT WITH SHARP PAIN TO RIGHT CHEST W INSP/EXP. PT ON 2 L 02 94%. A&OX4. DENIES COUGH, FEVER, N/V. PT PLACED ON VASCULAR NURSE. VSS, EKG COMPLETED. PAIN PUMP FOR MULITPLE SPINAL SURGERIES, PREVIOUS DVT AND PE HX, PLACED ON XARALTO.
[2019-12-30] MEDS ORDERED: ONDANSETRON 2MG/ML, 2ML IVPush ONE (17:00)
[2019-12-30] MEDS ORDERED: morphine SULFATE 10 MG/ML, 1ML IVPush ONE ×2 (17:00→18:00)
[2019-12-30] MEDS ORDERED: ONDANSETRON 2MG/ML, 2ML ONE (17:02)
[2019-12-30 17:03] LABS: BASOPHILS # (AUTO) 0.03 x10^3/uL (0-0.1); BASOPHILS % (AUTO) 1 % (0-1); EOSINOPHILS # (AUTO) 0.24 x10^3/uL (0-0.4); EOSINOPHILS % (AUTO) 4 % (1-7); LYMPHOCYTES # (AUTO) 2.07 x10^3/uL (1-3.4); LYMPHOCYTES % (AUTO) 38 % (22-44); MD NO; MEAN CORPUSCULAR HEMOGLOBIN 24.2 pg (27.0-34.8); MEAN CORPUSCULAR HGB CONC 31.4 g/dL (32.4-35.8); MONOCYTES # (AUTO) 0.39 x10^3/uL (0.2-0.8); MONOCYTES % (AUTO) 7 % (2-9); NEUTROPHILS # (AUTO) 2.76 x10^3/uL (1.8-6.8); NEUTROPHILS % (AUTO) 50 % (42-75); PLATELET COUNT 619 x10^3/uL (130-400); RED BLOOD COUNT 4.52 x10^6/uL (3.82-5.3); RED CELL DISTRIBUTION WIDTH 17.9 % (9.6-15.2)
[2019-12-30] MEDS ORDERED: MORPHINE SULFATE 4 MG/ML, 1ML ONE ×2 (17:03→17:56)
[2019-12-30 17:11] LABS: INTERNATIONAL NORMALIZED RATIO 1.13 (0.93-1.1)
[2019-12-30 17:13] LABS: ALBUMIN 3.1 g/dL (3.4-5.0); ANION GAP 5 mmol/L (5-15); CALCIUM 8.7 mg/dL (8.5-10.1); CHLORIDE 103 mmol/L (98-107); CREATININE 1.15 mg/dL (0.55-1.02)
[2019-12-30 17:17] LABS: TROPONIN I < 0.015 ng/mL (0.000-0.045)
--- NOTE | 2019-12-30 17:20 | NUR ---
MEDICATED FOR PAIN. US AT BEDSIDE. VSS.
--- NOTE | 2019-12-30 17:37 | NUR ---
PT STATES SHE STILL HAS ALOT OF PAIN AFTER MORPHINE. HER PAIN PUMP HAS MORPHINE, KETAMINE
[2019-12-30] MEDS ORDERED: POTASSIUM CHLORIDE 20 MEQ TAB.ER.PRT PO ONE (18:00)
[2019-12-30] MEDS ORDERED: POTASSIUM CHLORIDE 20 MEQ TAB.ER.PRT ONE (18:01)
--- NOTE | 2019-12-30 18:18 | NUR ---
SECOND EKG COMPLETE. MEDICATED W PAIN. VSS
--- NOTE | 2019-12-30 18:43 | NUR ---
REPORT TO JUSTINO
[2019-12-30] MEDS ORDERED: morphine SULFATE 10 MG/ML, 1ML ONE (19:27)
[2019-12-30] MEDS ORDERED: DOCUSATE 50 MG/5 ML, 10ML UDC PO PRN (19:30)
[2019-12-30] MEDS ORDERED: POLYETHYLENE GLYCOL 17 GM PACKET PO PRN (19:30)
[2019-12-30] MEDS ORDERED: DOCUSATE 100 MG CAPSULE PO PRN (19:30)
[2019-12-30] MEDS ORDERED: NALOXONE 0.4 MG/ML, 1ML IV PRN (19:30)
[2019-12-30] MEDS ORDERED: ONDANSETRON ODT 4 MG PO PRN (19:30)
[2019-12-30] MEDS ORDERED: BISACODYL 10 MG SUPP PR PRN (19:30)
[2019-12-30] MEDS ORDERED: INSTRUCTION SEE COMMENTS XX SCH (20:30)
[2019-12-30] MEDS ORDERED: TEMAZEPAM 15 MG CAPSULE PO PRN (21:00)
[2019-12-30] MEDS: METOPROLOL TARTRATE 25 MG TAB PO SCH (21:16)
[2019-12-30] MEDS: GABAPENTIN 300 MG CAPSULE PO SCH (21:16)
[2019-12-30] MEDS: MIRTAZAPINE 30 MG TAB.RAPDIS PO SCH (21:18)
[2019-12-30] MEDS: RIVAROXABAN 15 MG TABLET PO SCH (21:18)
[2019-12-30] MEDS: OXYcodone IR 5MG TABLET PO PRN (21:18)
[2019-12-30] MEDS: TIZANIDINE 4MG TABLET PO SCH (21:19)
[2019-12-30] MEDS: OMEPRAZOLE 20 MG CAPSULE.DR PO SCH (21:19)
[2019-12-30] MEDS: POTASSIUM CHLORIDE 20 MEQ TAB.ER.PRT PO SCH (21:20)
[2019-12-30] MEDS: LACTATED RINGERS 1,000 ML IV SCH (21:22)
[2019-12-30 21:34] VITALS: BP 157/97
[2019-12-30] MEDS: morphine SULFATE 10 MG/ML, 1ML IVPush PRN (23:17)
[2019-12-31] VITALS (7 sets, daily range): BP systolic 139–204; BP diastolic 87–151
[2019-12-31] MEDS: OXYcodone IR 5MG TABLET PO PRN ×5 (01:26→21:07)
[2019-12-31] MEDS: ACETAMINOPHEN 325 MG TABLET PO PRN (01:26)
[2019-12-31] MEDS: morphine SULFATE 10 MG/ML, 1ML IVPush PRN ×5 (02:35→23:47)
[2019-12-31 05:20] LABS: BASOPHILS # (AUTO) 0.05 x10^3/uL (0-0.1); BASOPHILS % (AUTO) 1 % (0-1); EOSINOPHILS # (AUTO) 0.24 x10^3/uL (0-0.4); EOSINOPHILS % (AUTO) 5 % (1-7); LYMPHOCYTES % (AUTO) 37 % (22-44); MD NO; MEAN CORPUSCULAR HEMOGLOBIN 24.4 pg (27.0-34.8); MEAN CORPUSCULAR HGB CONC 31.9 g/dL (32.4-35.8); MEAN CORPUSCULAR VOLUME 76.6 fL (80-100); MEAN PLATELET VOLUME 8.4 fL (7.4-10.4); MONOCYTES # (AUTO) 0.11 x10^3/uL (0.2-0.8); MONOCYTES % (AUTO) 2 % (2-9); NEUTROPHILS # (AUTO) 2.67 x10^3/uL (1.8-6.8); NEUTROPHILS % (AUTO) 55 % (42-75); PLATELET COUNT 581 x10^3/uL (130-400); RED BLOOD COUNT 4.92 x10^6/uL (3.82-5.3); RED CELL DISTRIBUTION WIDTH 17.8 % (9.6-15.2)
[2019-12-31 05:25] LABS: ANION GAP 7 mmol/L (5-15); CALCIUM 8.7 mg/dL (8.5-10.1); CHLORIDE 109 mmol/L (98-107); CREATININE 0.99 mg/dL (0.55-1.02)
[2019-12-31] MEDS: TIZANIDINE 4MG TABLET PO SCH ×4 (05:41→21:00)
[2019-12-31] MEDS: GABAPENTIN 300 MG CAPSULE PO SCH ×4 (05:41→21:06)
[2019-12-31] MEDS ORDERED: LORazepam 2 MG/ML, 1ML IVPush ONE (07:00)
[2019-12-31 07:10] LABS: TROPONIN I < 0.015 ng/mL (0.000-0.045)
[2019-12-31] MEDS ORDERED: REGADENOSON 0.4 MG/5 ML SYRINGE ONE (08:06)
[2019-12-31] MEDS ORDERED: PREGABALIN 75 MG CAPSULE PO SCH (09:00)
[2019-12-31] MEDS: POTASSIUM CHLORIDE 20 MEQ TAB.ER.PRT PO SCH ×2 (09:33→21:06)
[2019-12-31] MEDS: FUROSEMIDE 20 MG TABLET PO SCH (09:33)
[2019-12-31] MEDS: OMEPRAZOLE 20 MG CAPSULE.DR PO SCH ×2 (09:33→21:05)
[2019-12-31] MEDS: METOPROLOL TARTRATE 25 MG TAB PO SCH ×2 (09:33→21:06)
[2019-12-31] MEDS: LURASIDONE 20 MG TABLET PO SCH (09:33)
[2019-12-31] MEDS: RIVAROXABAN 15 MG TABLET PO SCH ×2 (09:33→17:14)
[2019-12-31] MEDS: LACTATED RINGERS 1,000 ML IV SCH (12:05)
[2019-12-31] MEDS: MIRTAZAPINE 30 MG TAB.RAPDIS PO SCH (21:06)
[2019-12-31] MEDS: hydrALAzine 20 MG/ML, 1ML IVPush PRN (22:25)
[2020-01-01] VITALS (12 sets, daily range): BP systolic 95–181; BP diastolic 66–130
[2020-01-01] MEDS: LACTATED RINGERS 1,000 ML IV SCH ×2 (01:16→17:06)
[2020-01-01] MEDS: hydrALAzine 20 MG/ML, 1ML IVPush PRN (02:34)
[2020-01-01] MEDS ORDERED: NITROGLYCERIN 0.4 MG BOTTLE (25 TABS) SL ONE (03:26)
[2020-01-01] MEDS ORDERED: NITROGLYCERIN 0.4 MG/SPRAY SL PRN (03:30)
[2020-01-01] MEDS: OXYcodone IR 5MG TABLET PO PRN ×2 (03:31→20:14)
[2020-01-01] MEDS: NITROGLYCERIN 0.4 MG BOTTLE (25 TABS) SL PRN ×3 (03:57→04:12)
[2020-01-01] MEDS: morphine SULFATE 10 MG/ML, 1ML IVPush PRN (04:05)
[2020-01-01] MEDS ORDERED: morphine SULFATE 10 MG/ML, 1ML IVPush ONE (04:30)
[2020-01-01] MEDS ORDERED: ONDANSETRON 2MG/ML, 2ML ONE (04:37)
[2020-01-01] MEDS ORDERED: ONDANSETRON 2MG/ML, 2ML IVPush ONE (05:00)
[2020-01-01 05:03] LABS: ANION GAP 9 mmol/L (5-15); CALCIUM 9.2 mg/dL (8.5-10.1); CHLORIDE 106 mmol/L (98-107); CREATININE 0.89 mg/dL (0.55-1.02)
[2020-01-01 05:11] LABS: TROPONIN I 0.019 ng/mL (0.000-0.045)
[2020-01-01] MEDS ORDERED: MAGNESIUM SULFATE PMX 4GM/100M 100 ML IV ONE (05:30)
[2020-01-01] MEDS: TIZANIDINE 4MG TABLET PO SCH ×4 (05:33→20:09)
[2020-01-01] MEDS: GABAPENTIN 300 MG CAPSULE PO SCH ×4 (05:33→20:10)
[2020-01-01] MEDS: OMEPRAZOLE 20 MG CAPSULE.DR PO SCH ×2 (07:59→20:10)
[2020-01-01] MEDS: RIVAROXABAN 15 MG TABLET PO SCH ×2 (08:00→17:04)
[2020-01-01] MEDS: LURASIDONE 20 MG TABLET PO SCH (08:00)
[2020-01-01] MEDS: FUROSEMIDE 20 MG TABLET PO SCH (08:00)
[2020-01-01] MEDS: METOPROLOL TARTRATE 25 MG TAB PO SCH ×2 (08:00→20:10)
[2020-01-01] MEDS: POTASSIUM CHLORIDE 20 MEQ TAB.ER.PRT PO SCH ×2 (08:00→20:10)
[2020-01-01] MEDS ORDERED: REGADENOSON 0.4 MG/5 ML SYRINGE ONE (09:23)
[2020-01-01] MEDS: KETOROLAC 30 MG/1 ML IVPush PRN ×2 (11:20→17:39)
[2020-01-01] MEDS ORDERED: LIDODERM 5% PATCH TD ONE (13:30)
[2020-01-01] MEDS: MIRTAZAPINE 30 MG TAB.RAPDIS PO SCH (20:10)
[2020-01-02 01:45] VITALS: BP 115/78
[2020-01-02] MEDS: OXYcodone IR 5MG TABLET PO PRN ×5 (02:05→16:00)
[2020-01-02] MEDS: KETOROLAC 30 MG/1 ML IVPush PRN ×3 (02:51→17:52)
[2020-01-02 03:50] VITALS: BP 121/83
[2020-01-02] MEDS: ACETAMINOPHEN 325 MG TABLET PO PRN (03:54)
[2020-01-02] MEDS: GABAPENTIN 300 MG CAPSULE PO SCH ×3 (05:05→16:02)
[2020-01-02] MEDS: TIZANIDINE 4MG TABLET PO SCH ×3 (05:05→16:02)
[2020-01-02] MEDS: morphine SULFATE 10 MG/ML, 1ML IVPush PRN ×2 (05:06→12:03)
[2020-01-02 05:23] LABS: ANION GAP 5 mmol/L (5-15); CALCIUM 8.9 mg/dL (8.5-10.1); CHLORIDE 104 mmol/L (98-107)
[2020-01-02 05:25] LABS: CREATININE 0.82 mg/dL (0.55-1.02)
[2020-01-02 07:58] VITALS: BP 140/96
[2020-01-02] MEDS: POTASSIUM CHLORIDE 20 MEQ TAB.ER.PRT PO SCH (08:28)
[2020-01-02] MEDS: METOPROLOL TARTRATE 25 MG TAB PO SCH (08:28)
[2020-01-02] MEDS: OMEPRAZOLE 20 MG CAPSULE.DR PO SCH (08:28)
[2020-01-02] MEDS: LURASIDONE 20 MG TABLET PO SCH (08:29)
[2020-01-02] MEDS: RIVAROXABAN 15 MG TABLET PO SCH ×2 (08:29→17:41)
[2020-01-02] MEDS: FUROSEMIDE 20 MG TABLET PO SCH (08:29)
[2020-01-02] MEDS: LACTATED RINGERS 1,000 ML IV SCH (10:26)
[2020-01-02] MEDS ORDERED: DICL100G19 TP (11:26)
[2020-01-02 12:10] VITALS: BP 148/82
[2020-01-02 13:20] VITALS: BP 127/85
[2020-01-07] MEDS ORDERED: RIVAROXABAN 20 MG TABLET PO SCH (17:00)
== END 2020-01-02 19:00 | disposition home health service (06) | DRG 206 ==
LOC: ED 17:09 → EDIP 18:30 → 5SO 19:54
PROVIDERS: ADMIT Emergency Medicine; ATTEND Emergency Medicine
DX: M94.0 Chondrocostal junction syndrome [Tietze] (principal); R09.1 Pleurisy; E03.9 Hypothyroidism, unspecified; E66.9 Obesity, unspecified; E86.0 Dehydration; E87.6 Hypokalemia; F12.10 Cannabis abuse, uncomplicated; G47.30 Sleep apnea, unspecified; Z83.3 Family history of diabetes mellitus; Z82.49 Family history of ischemic heart disease and other diseases of the circulatory system; Z88.8 Allergy status to other drugs, medicaments and biological substances; G89.29 Other chronic pain; I11.0 Hypertensive heart disease with heart failure; R09.02 Hypoxemia; Z79.01 Long term (current) use of anticoagulants; Z86.711 Personal history of pulmonary embolism; Z86.718 Personal history of other venous thrombosis and embolism; Z87.891 Personal history of nicotine dependence; Z90.710 Acquired absence of both cervix and uterus; Z68.36 Body mass index [BMI] 36.0-36.9, adult; Z90.49 Acquired absence of other specified parts of digestive tract; F31.9 Bipolar disorder, unspecified; R53.81 Other malaise
CPT/HCPCS: 36415; 71045; 78452; 80048; 82040; 83735; 83880; 84100; 84484; 85025; 85610; 93005; 93017; 93308; 93321; 93325; 96374; G0378; J1885; J2405; J2785; A9502; C9898; J0360; J2060; J2270; J3475; J7120

== ENCOUNTER 2020-02-07 17:17 | Emergency (ER) | payer MEDICARE, MEDICAID ==
[~2020-02-07] VITALS: Ht 162.6 cm; Wt 84.5 kg
[~2020-02-07 17:17] MED LIST changes: +DICL100G19 TP
[2020-02-07] MEDS ORDERED: SODIUM CHLORIDE FLUSH 10ML SYR IVF ONE (17:30)
--- NOTE | 2020-02-07 17:50 | NUR ---
BIB [facility] FOR SOB/CP/FATIGUE/RLE PAIN X3 DAYS, WORSENING SINCE 0300, HX MULT PE'S ON XARELTO, PT STATES IT FEELS THE SAME. HR 130. PT PLACED ON MONITOR, AT BEDSIDE. 2X ATTEMPTS AT IV START BY HEATH AND ADDITIONAL 2X BY THIS RN, UNABLE TO OBTAIN IV ACCESS. NOTIFIED.
[2020-02-07 17:59] LABS: BASOPHILS # (AUTO) 0.04 x10^3/uL (0-0.1); BASOPHILS % (AUTO) 1 % (0-1); EOSINOPHILS # (AUTO) 0.02 x10^3/uL (0-0.4); EOSINOPHILS % (AUTO) 0 % (1-7); LYMPHOCYTES % (AUTO) 14 % (22-44); MD NO; MEAN CORPUSCULAR HEMOGLOBIN 23.7 pg (27.0-34.8); MEAN CORPUSCULAR HGB CONC 31.5 g/dL (32.4-35.8); MEAN CORPUSCULAR VOLUME 75.2 fL (80-100); MEAN PLATELET VOLUME 8.9 fL (7.4-10.4); MONOCYTES # (AUTO) 0.65 x10^3/uL (0.2-0.8); MONOCYTES % (AUTO) 10 % (2-9); NEUTROPHILS # (AUTO) 4.83 x10^3/uL (1.8-6.8); NEUTROPHILS % (AUTO) 75 % (42-75); PLATELET COUNT 300 x10^3/uL (130-400); RED BLOOD COUNT 4.14 x10^6/uL (3.82-5.3); RED CELL DISTRIBUTION WIDTH 19.1 % (9.6-15.2)
[2020-02-07 18:08] LABS: INTERNATIONAL NORMALIZED RATIO 1.05 (0.93-1.1); PROTHROMBIN TIME 11.1 Seconds (9.6-11.5)
[2020-02-07 18:10] LABS: ALBUMIN 2.4 g/dL (3.4-5.0); ANION GAP 5 mmol/L (5-15); CALCIUM 8.2 mg/dL (8.5-10.1); CHLORIDE 97 mmol/L (98-107); CREATININE 0.81 mg/dL (0.55-1.02)
[2020-02-07 18:14] LABS: TROPONIN I < 0.015 ng/mL (0.000-0.045)
--- NOTE | 2020-02-07 18:38 | NUR ---
NO RN AT BEDSIDE FOR US IV PLACEMENT
--- NOTE | 2020-02-07 18:42 | NUR ---
TASK RN: RIGHT FOREARM 18 GAUGE PLACED PATIENT ASKING FOR PAUIN MEDICINE-PROVIDER MADE AWARE
--- NOTE | 2020-02-07 18:47 | NUR ---
PT TO CT
[2020-02-07] MEDS ORDERED: KETOROLAC 30 MG/1 ML IVPush ONE (19:00)
[2020-02-07] MEDS ORDERED: POTASSIUM CHLORIDE 20 MEQ PACKET PO ONE (19:00)
[2020-02-07] MEDS ORDERED: KETOROLAC 30 MG/1 ML ONE (19:05)
--- NOTE | 2020-02-07 19:09 | NUR ---
TASK RN: PT IN CT, DELAY IN MEDICATING.
--- NOTE | 2020-02-07 19:17 | NUR ---
TASK RN: PT RETURNED FROM CT, NAD NOTED. PT MEDICATED PER EMAR FOR 05/03 PAIN. K+ ORDERED FROM PHARMACY. PT REPORTEDLY TAKES POTASSIUM SUPPLEMENT TWICE DAILY AND IS COMPLIANT WITH LASIX. K+ 2.9. BP/SPO2/ECG MONITORING IN PLACE. NSR ON MONITOR.
[2020-02-07] MEDS ORDERED: OMNIPAQUE 350 MG/ML, 75ML BOTTLE ONE (19:25)
[2020-02-07 20:06] VITALS: BP 155/96
--- NOTE | 2020-02-07 21:16 | NUR ---
Pt demanding taxi voucher as she has no one to pick her up. Pt reports she is unable to get a ride. Pt reports her parents are too sick and her cannot come. Pt reports her caregiver is also working at this time.
--- NOTE | 2020-02-07 21:31 | NUR ---
Patient/Caregiver given discharge instructions and they have confirmed that they understand the instructions. Patient ambulatory with steady gait. Pt given taxi voucher for safe dc. Pt did threaten RN if nto given taxi voucher.
== END 2020-02-07 21:48 ==
LOC: ED 21:34
DX: M79.661 Pain in right lower leg (principal); M79.651 Pain in right thigh; R07.89 Other chest pain; R06.00 Dyspnea, unspecified; I25.2 Old myocardial infarction; K21.9 Gastro-esophageal reflux disease without esophagitis; R00.0 Tachycardia, unspecified; Z79.01 Long term (current) use of anticoagulants; Z87.891 Personal history of nicotine dependence; Z86.718 Personal history of other venous thrombosis and embolism
CPT/HCPCS: 36415; 71275; 80048; 82040; 83605; 83880; 84484; 85025; 85610; 87040; 93005; 93971; 96374; 99285; J1885; Q9967; 87077

== ENCOUNTER 2020-02-20 17:08 | Emergency (ER) | payer MEDICARE, MEDICAID ==
[~2020-02-20] VITALS: Ht 162.6 cm; Wt 95.7 kg
--- NOTE | 2020-02-20 17:57 | NUR ---
ALUMINUM SIDING MECHANIC: PT AMBULATORY WITH STEADY GAIT TO ROOM AT THIS TIME. NHUNG
[2020-02-20 18:12] LABS: MICROSCOPIC AUTO
[2020-02-20] MEDS ORDERED: LEVO75TA PO (18:29)
[2020-02-20] MEDS ORDERED: DOXE25CA PO (18:32)
--- NOTE | 2020-02-20 19:04 | NUR ---
report to Alexander ELISE.
[2020-02-20 19:08] LABS: BASOPHILS # (AUTO) 0.08 x10^3/uL (0-0.1); BASOPHILS % (AUTO) 1 % (0-1); EOSINOPHILS # (AUTO) 0.05 x10^3/uL (0-0.4); EOSINOPHILS % (AUTO) 1 % (1-7); LYMPHOCYTES % (AUTO) 22 % (22-44); MD NO; MEAN CORPUSCULAR HEMOGLOBIN 23.7 pg (27.0-34.8); MEAN CORPUSCULAR HGB CONC 31.6 g/dL (32.4-35.8); MEAN PLATELET VOLUME 7.5 fL (7.4-10.4); MONOCYTES # (AUTO) 0.39 x10^3/uL (0.2-0.8); MONOCYTES % (AUTO) 4 % (2-9); NEUTROPHILS # (AUTO) 6.36 x10^3/uL (1.8-6.8); NEUTROPHILS % (AUTO) 72 % (42-75); PLATELET COUNT 724 x10^3/uL (130-400); RED BLOOD COUNT 4.35 x10^6/uL (3.82-5.3); RED CELL DISTRIBUTION WIDTH 18.7 % (9.6-15.2)
[2020-02-20] MEDS ORDERED: CEFTRIAXONE PMX 1GM/50ML 50 ML ONE (19:13)
[2020-02-20 19:20] LABS: ALANINE AMINOTRANSFERASE 18 U/L (12-78); ALBUMIN 2.9 g/dL (3.4-5.0); ANION GAP 5 mmol/L (5-15); CALCIUM 9.1 mg/dL (8.5-10.1); CHLORIDE 106 mmol/L (98-107); CREATININE 0.89 mg/dL (0.55-1.02)
[2020-02-20 19:21] LABS: ALKALINE PHOSPHATASE 145 U/L (45-117); BILIRUBIN,TOTAL 0.5 mg/dL (0.2-1.0); TOTAL PROTEIN 8.7 g/dL (6.4-8.2)
[2020-02-20] MEDS ORDERED: CEFTRIAXONE PMX 1GM/50ML 50 ML IV ONE (20:00)
[2020-02-20] MEDS ORDERED: SODIUM CHLORIDE 0.9% 1,000ML IVBOLUS ONE (20:00)
[2020-02-20] MEDS ORDERED: SODIUM CHLORIDE FLUSH 10ML SYR IVF ONE (20:00)
--- NOTE | 2020-02-20 20:30 | NUR ---
ASSISTED PT TO BEDSIDE COMODE.
--- NOTE | 2020-02-20 20:55 | NUR ---
POST VOID BLADDER SCAN 324ML.
--- NOTE | 2020-02-20 20:57 | NUR ---
UPDATED ERP PT VOIDED 500ML AND POST VOID BLADDER SCAN INDICATES 324ML. PT REPORTS SHE IS UNABLE FEEL WHILE SHE'S VOIDING.
--- NOTE | 2020-02-20 21:17 | NUR ---
RICH CATH PLACED PER MD ORDER.
[2020-02-20 21:47] VITALS: BP 134/105
[2020-05-14] MEDS ORDERED: HYDROMORPHONE PUMP SQ (13:56)
[2020-05-14] MEDS ORDERED: [UNRECOGNIZED DRUG - REMARK] SQ (13:56)
[2020-05-14] MEDS ORDERED: BUPIVACAINE SQ (13:56)
[2020-05-14] MEDS ORDERED: QUET400T4 PO (14:04)
[2020-05-18] MEDS ORDERED: CEFD300C37 PO (15:51)
[2020-05-18] MEDS ORDERED: FERR-51 PO (15:51)
== END 2020-02-20 21:49 | disposition home or self-care (01) ==
LOC: ED 17:38
DX: N30.00 Acute cystitis without hematuria (principal); R33.8 Other retention of urine; E03.9 Hypothyroidism, unspecified; I25.2 Old myocardial infarction; Z86.718 Personal history of other venous thrombosis and embolism
CPT/HCPCS: 36415; 51702; 76770; 80053; 81001; 85025; 87040; 87077; 87086; 96365; 99284; J0696; J7030; 87186

== ENCOUNTER 2020-02-22 17:30 | Emergency (ER) | payer MEDICARE, MEDICAID ==
[~2020-02-22] VITALS: Ht 162.6 cm; Wt 95.0 kg
[~2020-02-22 17:30] MED LIST changes: +DOXE25CA PO; +LEVO75TA PO
[2020-02-22 19:43] LABS: BASOPHILS # (AUTO) 0.04 x10^3/uL (0-0.1); BASOPHILS % (AUTO) 1 % (0-1); EOSINOPHILS # (AUTO) 0.45 x10^3/uL (0-0.4); EOSINOPHILS % (AUTO) 6 % (1-7); LYMPHOCYTES # (AUTO) 2.34 x10^3/uL (1-3.4); LYMPHOCYTES % (AUTO) 32 % (22-44); MD NO; MEAN CORPUSCULAR HEMOGLOBIN 23.7 pg (27.0-34.8); MEAN CORPUSCULAR HGB CONC 31.2 g/dL (32.4-35.8); MEAN PLATELET VOLUME 7.8 fL (7.4-10.4); MONOCYTES # (AUTO) 0.42 x10^3/uL (0.2-0.8); MONOCYTES % (AUTO) 6 % (2-9); NEUTROPHILS # (AUTO) 4.15 x10^3/uL (1.8-6.8); NEUTROPHILS % (AUTO) 56 % (42-75); PLATELET COUNT 704 x10^3/uL (130-400); RED BLOOD COUNT 4.71 x10^6/uL (3.82-5.3); RED CELL DISTRIBUTION WIDTH 18.9 % (9.6-15.2)
[2020-02-22 19:51] LABS: ALBUMIN 2.8 g/dL (3.4-5.0); ANION GAP 8 mmol/L (5-15); CALCIUM 8.8 mg/dL (8.5-10.1); CHLORIDE 106 mmol/L (98-107)
[2020-02-22 19:57] LABS: ALANINE AMINOTRANSFERASE 18 U/L (12-78); ALKALINE PHOSPHATASE 136 U/L (45-117); BILIRUBIN,TOTAL 0.3 mg/dL (0.2-1.0); CREATININE 0.81 mg/dL (0.55-1.02); TOTAL PROTEIN 8.2 g/dL (6.4-8.2)
[2020-02-22] MEDS ORDERED: SODIUM CHLORIDE FLUSH 10ML SYR IVF ONE (20:00)
[2020-02-22] MEDS ORDERED: CEFTRIAXONE PMX 1GM/50ML 50 ML IVPB ONE (20:00)
[2020-02-22] MEDS ORDERED: ACETAMINOPHEN 325 MG TABLET PO ONE (20:00)
[2020-02-22] MEDS ORDERED: IBUPROFEN 200 MG TABLET PO ONE (20:00)
--- NOTE | 2020-02-22 20:01 | NUR ---
DR. HE AT BEDSIDE. PT ELECTING TO HAVE IV ANTIBIOTICS AND PER DR. HE NO UA NEEDS TO BE COLLECTED.
[2020-02-22] MEDS ORDERED: IBUPROFEN 200 MG TABLET ONE (20:05)
[2020-02-22] MEDS ORDERED: ACETAMINOPHEN 325 MG TABLET ONE (20:05)
[2020-02-22] MEDS ORDERED: CEFTRIAXONE PMX 1GM/50ML 50 ML ONE (20:05)
--- NOTE | 2020-02-22 20:16 | NUR ---
NO BLOOD CULTURES PER DR. HE.
--- NOTE | 2020-02-22 21:10 | NUR ---
RICH REMOVED PER DR. HE. WAITING FOR PT TO VOIF PRIOR TO VOID. CATHETER WAS IRRIGATED PER AND URINE TURNED FROM DARK RED TO ARMHOLE PRESSER RED/YELLOW.
[2020-02-22] MEDS ORDERED: METHOCARBAMOL 750 MG TABLET ONE (21:55)
[2020-02-22] MEDS ORDERED: METHOCARBAMOL 750 MG TABLET PO ONE (22:00)
--- NOTE | 2020-02-22 22:00 | NUR ---
REPORT RC'VD FROM MICHAEL ELISE.
--- NOTE | 2020-02-22 22:03 | NUR ---
PT UP TO BEDSIDE COMMODE TO VOID PRIOR TO DC. PT MEDICATED WITH ROBAXIN FOR BLADDER SPASMS PER DR. HE.
[2020-02-22 22:05] VITALS: BP 132/90
--- NOTE | 2020-02-22 22:06 | NUR ---
REPORT TO GRANT Olivares RN.
--- NOTE | 2020-02-22 22:29 | NUR ---
PT WAS ABLE TO VOID SMALL AMOUNT PINK/BLOODY URINE IN BSC. ERP UPDATED, OKAY TO DISCHARGE. PT STATES SHE WANTS TO GO HOME AND WILL COME BACK TO ER TOMORROW IF NOT ABLE TO VOID. D/C INSTRUCTIONS & F/U APPT RV'WD WITH PT. ASSISTED OUT OF ER VIA WC, PT WILL CALL [facility] AND SON WILL HELP HER AT HOME.
== END 2020-02-22 22:32 | disposition home or self-care (01) ==
LOC: ED 21:09
DX: R31.0 Gross hematuria (principal); R10.9 Unspecified abdominal pain; I25.2 Old myocardial infarction; R19.7 Diarrhea, unspecified; R05 Cough; R06.00 Dyspnea, unspecified; R51 Headache; K21.9 Gastro-esophageal reflux disease without esophagitis; E03.9 Hypothyroidism, unspecified; Z87.891 Personal history of nicotine dependence
CPT/HCPCS: 36415; 80053; 84703; 85025; 96365; 99284; J0696

== ENCOUNTER 2020-03-29 10:59 | Outpatient (CLI) | payer MEDICARE, MEDICAID ==
[2020-03-29] MEDS ORDERED: MIDAZOLAM 1 MG/ML, 5ML ONE ×2 (11:47)
[2020-03-29] MEDS ORDERED: FLUMAZENIL 0.1 MG/1 ML, 5ML ONE (11:47)
[2020-03-29] MEDS ORDERED: FENTANYL PF 100 MCG/2ML ONE (11:47)
[2020-03-29] MEDS ORDERED: NALOXONE 1 MG/ML, 2ML ONE (11:48)
[2020-03-29] MEDS ORDERED: GADOTERATE 10 MMOL/20 ML SYR ONE (13:24)
== END 2020-03-29 23:59 | disposition home or self-care (01) ==
LOC: RAD 10:59
PROVIDERS: ATTEND Pain Medicine Interventional Pain Medicine
DX: M96.1 Postlaminectomy syndrome, not elsewhere classified (principal); F12.90 Cannabis use, unspecified, uncomplicated; Z88.8 Allergy status to other drugs, medicaments and biological substances; Z91.018 Allergy to other foods; Z79.899 Other long term (current) drug therapy; Z87.891 Personal history of nicotine dependence
CPT/HCPCS: 72120; 72158; 99156; 99157; A9575; J2250; J3010; J2310

== ENCOUNTER 2020-04-03 13:27 | Emergency (ER) | payer MEDICARE, MEDICAID ==
[~2020-04-03] VITALS: Ht 165.1 cm; Wt 99.1 kg
[2020-04-03 14:05] LABS: BASOPHILS # (AUTO) 0.02 x10^3/uL (0-0.1); BASOPHILS % (AUTO) 1 % (0-1); EOSINOPHILS # (AUTO) 0.12 x10^3/uL (0-0.4); EOSINOPHILS % (AUTO) 4 % (1-7); LYMPHOCYTES % (AUTO) 36 % (22-44); MD NO; MEAN CORPUSCULAR HEMOGLOBIN 22.5 pg (27.0-34.8); MEAN CORPUSCULAR HGB CONC 30.5 g/dL (32.4-35.8); MEAN CORPUSCULAR VOLUME 73.5 fL (80-100); MEAN PLATELET VOLUME 8.9 fL (7.4-10.4); MONOCYTES # (AUTO) 0.26 x10^3/uL (0.2-0.8); MONOCYTES % (AUTO) 9 % (2-9); NEUTROPHILS # (AUTO) 1.59 x10^3/uL (1.8-6.8); NEUTROPHILS % (AUTO) 51 % (42-75); PLATELET COUNT 346 x10^3/uL (130-400); RED BLOOD COUNT 3.86 x10^6/uL (3.82-5.3); RED CELL DISTRIBUTION WIDTH 18.1 % (9.6-15.2)
[2020-04-03 14:15] LABS: ANION GAP 4 mmol/L (5-15); CALCIUM 7.7 mg/dL (8.5-10.1); CHLORIDE 116 mmol/L (98-107); CREATININE 0.81 mg/dL (0.55-1.02)
[2020-04-03 14:16] LABS: SALICYLATE LEVEL < 1.7 mg/dL (2.8-20.0)
[2020-04-03 14:31] LABS: MICROSCOPIC AUTO
[2020-04-03 14:33] VITALS: BP 150/101
[2020-04-03 14:36] LABS: AMPHETAMINE SCREEN, URINE Negative (Negative); BENZODIAZEPINE SCREEN, URINE Positive (Negative); CANNABINOID SCREEN, URINE Positive (Negative); COCAINE SCREEN, URINE Negative (Negative); METHADONE SCREEN, URINE Negative (Negative); OPIATE SCREEN, URINE Positive (Negative)
[2020-04-03 14:37] LABS: BARBITURATE SCREEN, URINE Negative (Negative)
--- NOTE | 2020-04-03 15:12 | NUR ---
SANJAY RAMON CALLED
--- NOTE | 2020-04-03 15:17 | NUR ---
PT BACK FROM CT NOW Addendum: 04/03/20 at 1521 by TIMBO x ray
--- NOTE | 2020-04-03 16:54 | NUR ---
PT ASSISTED TO WC AND TAKEN TO DC DESK WITH TAXI VOUCHER.
== END 2020-04-03 16:59 ==
LOC: ED 16:53
DX: T40.7X1A Poisoning by cannabis (derivatives), accidental (unintentional), initial encounter (principal); S22.069A Unspecified fracture of T7-T8 vertebra, initial encounter for closed fracture; S16.1XXA Strain of muscle, fascia and tendon at neck level, initial encounter; R41.82 Altered mental status, unspecified; R51 Headache; M54.2 Cervicalgia; I25.2 Old myocardial infarction; E03.9 Hypothyroidism, unspecified; K21.9 Gastro-esophageal reflux disease without esophagitis; W01.0XXA Fall on same level from slipping, tripping and stumbling without subsequent striking against object, initial encounter; Y93.89 Activity, other specified; Y92.009 Unspecified place in unspecified non-institutional (private) residence as the place of occurrence of the external cause; Y99.8 Other external cause status
CPT/HCPCS: 36415; 70450; 71045; 72072; 72110; 72125; 80048; 80307; 81001; 82040; 85025; 87086; 99285

== ENCOUNTER 2020-05-25 20:03 | Emergency (ER) | payer MEDICARE, MEDICAID ==
[~2020-05-25] VITALS: Ht 162.6 cm; Wt 85.1 kg
[~2020-05-25 20:03] MED LIST changes: +BUPIVACAINE SQ; +FERR-51 PO; +HYDROMORPHONE PUMP SQ; +QUET400T4 PO; +[UNRECOGNIZED DRUG - REMARK] SQ
[2020-05-25 20:05] VITALS: BP 96/49
[2020-05-25 22:09] LABS: ANION GAP 6 mmol/L (5-15); CALCIUM 9.3 mg/dL (8.5-10.1); CHLORIDE 106 mmol/L (98-107)
[2020-05-25 22:10] LABS: CREATININE 1.27 mg/dL (0.55-1.02)
--- NOTE | 2020-05-25 22:15 | NUR ---
ALL RESULTS ARE BACK AT THIS TIME. CHART UP FOR RECHECK.
== END 2020-05-25 22:52 | disposition home or self-care (01) ==
LOC: ED 22:39
DX: H93.13 Tinnitus, bilateral (principal); I25.2 Old myocardial infarction; K21.9 Gastro-esophageal reflux disease without esophagitis; E03.9 Hypothyroidism, unspecified; Z86.718 Personal history of other venous thrombosis and embolism; Z90.710 Acquired absence of both cervix and uterus
CPT/HCPCS: 36415; 80048; 99283

== ENCOUNTER 2020-06-17 21:46 | Emergency (ER) | payer MEDICARE, MEDICAID ==
[~2020-06-17] VITALS: Ht 162.6 cm; Wt 90.0 kg
--- NOTE | 2020-06-17 22:12 | NUR ---
BIB [facility] FOR PYSCOSIS FOR 3 DAYS WITH AUDITORY AND VISUAL HALLUCINATIONS. PT STATES HER MEDICATIONS WERE CHANGED 1.5 WEEKS AGO BUT SHE HAS BEEN COMPLIANT WITH TAKING THEM. PT STATES SHE HAS ONLY SLEPT 1-2 HRS OVER THE LAST FEW NIGHTS. PT STATES SHE HAS BEEN HAVING SI THOUGHTS WHICH IS WHY SHE CALLED 911 BUT HAS NO PLAN OR INTENTION OF KILLING HERSELF. PT HAS SERVICE DOG AT BEDSIDE, SON WILL BE BY TO ASSIGNMENT MANAGER.
[2020-06-17] MEDS ORDERED: RAME8TAB19 PO (22:24)
[2020-06-17] MEDS ORDERED: FURO40TA6 PO (22:24)
[2020-06-17] MEDS ORDERED: TIZA2CAP PO (22:24)
[2020-06-17] MEDS ORDERED: EPIN0.1S2 IM (22:24)
[2020-06-17] MEDS ORDERED: VARE0.5T PO (22:24)
[2020-06-17 22:32] LABS: ALBUMIN 3.3 g/dL (3.4-5.0); ANION GAP 6 mmol/L (5-15); BASOPHILS % (AUTO) 1 % (0-1); CALCIUM 8.4 mg/dL (8.5-10.1); CHLORIDE 110 mmol/L (98-107); CREATININE 1.02 mg/dL (0.55-1.02); EOSINOPHILS % (AUTO) 4 % (1-7); LYMPHOCYTES % (AUTO) 40 % (22-44); MEAN CORPUSCULAR HEMOGLOBIN 27.2 pg (27.0-34.8); MEAN PLATELET VOLUME 8.1 fL (7.4-10.4); MONOCYTES % (AUTO) 9 % (2-9); NEUTROPHILS % (AUTO) 47 % (42-75); PLATELET COUNT 255 x10^3/uL (130-400); RED CELL DISTRIBUTION WIDTH 25.3 % (9.6-15.2); SALICYLATE LEVEL 3.2 mg/dL (2.8-20.0)
[2020-06-17] MEDS ORDERED: LORazepam 1MG TABLET ONE (23:25)
[2020-06-17 23:26] LABS: MD MORPH REVIEW ONLY
[2020-06-17 23:27] LABS: ANISOCYTOSIS 2+; MICROCYTOSIS 2+
[2020-06-17 23:29] LABS: OVALOCYTES 1+
[2020-06-17 23:30] LABS: <PLATELET ESTIMATE> ADEQUATE
[2020-06-17] MEDS ORDERED: LORazepam 1MG TABLET PO ONE (23:30)
[2020-06-17 23:31] LABS: LARGE PLATELETS 1+
--- NOTE | 2020-06-17 23:37 | NUR ---
URINE SAMPLE SENT TO LAB, PT MEDICATED FOR ANXIETY. SON ON WAY TO CONSTRUCTION CRAFT LABORER DOG. PT PLEASANT AND COOPERATIVE, UNDERSTANDS POC
[2020-06-17 23:41] LABS: AMPHETAMINE SCREEN, URINE Negative (Negative); BARBITURATE SCREEN, URINE Negative (Negative); BENZODIAZEPINE SCREEN, URINE Negative (Negative); CANNABINOID SCREEN, URINE Positive (Negative); COCAINE SCREEN, URINE Negative (Negative); METHADONE SCREEN, URINE Negative (Negative); OPIATE SCREEN, URINE Negative (Negative)
--- NOTE | 2020-06-17 23:45 | NUR ---
assisted primary RN with care pt reports that she has a spinal cord stimulator in place and has a remote device that is linked to it pt aso reports that she has an implanted infusion pump for pain medication that has a basal delivery of dilaudid, bupivicaine and ketamine. pt also states that she has this pump liked to a remote device that allows for a bolus delivery when needed. Dr. Chaney notified. Primary RN Thalia notified
--- NOTE | 2020-06-17 23:55 | NUR ---
THROUGHPUT RN: TELEPSYCH CONSULT SUBMITTED AND SET UP IN ROOM
--- NOTE | 2020-06-18 00:16 | NUR ---
DOG TAKEN HOME BY SON. ALL PERSONAL BELONGINGS PLACED IN LOCKER. PT PLACED ON O2 MONITOR AND TELEPYSCH SET UP IN ROOM. WARM BLANKETS PROVIDED. PT VERBALIZES UNDERSTANDING OF POC
[2020-06-18] MEDS ORDERED: MIRTAZAPINE 15 MG TABLET PO SCH (01:00)
[2020-06-18] MEDS ORDERED: QUETIAPINE 100MG TABLET PO SCH (01:00)
--- NOTE | 2020-06-18 01:11 | NUR ---
MT: PSYCH PACKET SENT TO [facility], [place], [facility], [place], [facility], [facility].
--- NOTE | 2020-06-18 01:39 | NUR ---
PT HAS CELL PHONE DEVICE HUB INVENTORY SPECIALIST CONTROL AND IS ON LEGAL HOLD. PT INSTRUCTED TO CALL WHEN ADDITIONAL DOSE IS DESIRED FOR RETERVIAL OF DEVICE FROM LOCKER FOR SELF ADMINISTRATION. PT CURRENTLY DROWSY, WAKES UP TO VERBAL STIMULI.
--- NOTE | 2020-06-18 01:53 | NUR ---
GINA FROM [facility] CALL FOR EVALUATION
--- NOTE | 2020-06-18 01:59 | NUR ---
PT DROWSY, PER ED VELAZQUEZAY TO HOLD SEROQUEL AND REMERON NOW AND START TONIGHT. ORDER REPEATED.
--- NOTE | 2020-06-18 02:08 | NUR ---
MT: GINA AT [facility] DENIED PT DUE TO MEDICAL COMPLEXITIES. [facility] IS FULL AND WILL CALL IN THE MORNING.
--- NOTE | 2020-06-18 03:00 | NUR ---
PT RESTING IN [facility]. NO NEEDS AT THIS TIME. SITTER AT DOORWAY
--- NOTE | 2020-06-18 04:09 | NUR ---
PT RESTING COMFORTABLY. NO NEEDS AT THIS TIME. SITTER AT DOORWAY
--- NOTE | 2020-06-18 04:36 | NUR ---
GABBY FURNITURE MOVER DRIVER [phone] JUAN ANTONIO (SON) [phone] [facility] [place] [phone]
[2020-06-18] MEDS ORDERED: OMEPRAZOLE 20 MG CAPSULE.DR PO ONE (06:00)
[2020-06-18] MEDS ORDERED: LEVOTHYROXINE 75 MCG TABLET PO SCH (06:00)
[2020-06-18] MEDS ORDERED: TEMPLATE NON-FORMULARY MED. (Gabapentin** 800 MG) PO SCH (06:00)
[2020-06-18] MEDS ORDERED: GABAPENTIN 400 MG CAPSULE PO ONE (06:00)
[2020-06-18] MEDS ORDERED: GABAPENTIN 400 MG CAPSULE ONE (06:28)
[2020-06-18] MEDS ORDERED: OMEPRAZOLE 20 MG CAPSULE.DR ONE (06:28)
--- NOTE | 2020-06-18 06:53 | NUR ---
REPORT GIVEN TO AGNIESZKA ELISE
--- NOTE | 2020-06-18 06:54 | NUR ---
Report from Thalia ELISE. Pt resting in bed with eyes closed, resp even and unlabored, NHUNG. Room is secured, sitter within eyesight of pt, all safety measures observed.
[2020-06-18] MEDS ORDERED: METOPROLOL TARTRATE 25 MG TAB ONE (07:09)
--- NOTE | 2020-06-18 07:19 | NUR ---
Pt medicated per MAR. Pt reports she is still hearing voices, reports anxiety associated with this. Pt requesting Ativan for her anxiety.
--- NOTE | 2020-06-18 07:35 | NUR ---
Spoke on the phone with Maryam, pt's caregiver, with pt's permission. Maryam updated on pt condition and POC. Maryam requests she be updated when pt is accepted to a psych facility.
[2020-06-18] MEDS ORDERED: LORazepam 1MG TABLET ONE (07:44)
--- NOTE | 2020-06-18 07:52 | NUR ---
Order for 1mg PO Ativan recieved from Dr. Arana. Pt medicated per order, denies other needs.
[2020-06-18] MEDS ORDERED: LORazepam 1MG TABLET PO ONE (08:00)
--- NOTE | 2020-06-18 08:25 | NUR ---
Pt ate all of SI breakfast tray provided. Pt watching TV, NHUNG.
[2020-06-18] MEDS ORDERED: METOPROLOL TARTRATE 25 MG TAB PO SCH (09:00)
[2020-06-18] MEDS ORDERED: TEMPLATE NON-FORMULARY MED. (Omeprazole Magnesium** (Prilosec Otc**) 20 MG) PO SCH (09:00)
--- NOTE | 2020-06-18 09:08 | NUR ---
Pt able to transfer to bedside commode and back to bed without difficulty. Pt continues resting in bed, NADN.
--- NOTE | 2020-06-18 09:13 | NUR ---
Pt provided with controler for bolus of intrathecal pump per request. Pt self administered bolus. Controler placed back into locker with other pt belongings. Pt denies other needs.
--- NOTE | 2020-06-18 10:06 | NUR ---
nikunj from [facility] called and at the current time doesn't have any beds avail. and is awaiting d/c's.
--- NOTE | 2020-06-18 10:45 | NUR ---
Pt resting in bed with eyes closed, resp even and unlabored, NADN.
--- NOTE | 2020-06-18 11:23 | NUR ---
PT REPORT FROM GOSIA AARON. PT CARE TO BE ASSUMED.
--- NOTE | 2020-06-18 11:40 | NUR ---
RESTING QUIETLY ON GURNEY; AWAITING TRANSPORTATION TO [facility]. SITTER OUTSIDE ROOM.
--- NOTE | 2020-06-18 12:13 | NUR ---
LABS DRAWN. COVID SPECIMEN TO BE OBTAINED PER MED STUDENT.
--- NOTE | 2020-06-18 12:28 | NUR ---
PT REQUESTING ANTI-ANXIETY MED; NO ACTIVE ORDER IN EMAR; WILL NOTIFY ERP.
--- NOTE | 2020-06-18 12:29 | NUR ---
LUNCH TRAY DELIVERED.
--- NOTE | 2020-06-18 13:15 | NUR ---
[facility] HERE FOR PT TRANSPORT. ALL PT BELONGINGS GIVEN TO [facility] STAFF, INCLUDING CELL PHONE.
[2020-06-18 13:35] VITALS: BP 127/76
[2020-06-18] MEDS ORDERED: RIVAROXABAN 20 MG TABLET PO SCH (17:00)
== END 2020-06-18 13:37 ==
LOC: ED 22:46
DX: R45.851 Suicidal ideations (principal); R44.0 Auditory hallucinations; R44.1 Visual hallucinations; F32.9 Major depressive disorder, single episode, unspecified; I10 Essential (primary) hypertension; E03.9 Hypothyroidism, unspecified; G89.29 Other chronic pain; Z86.718 Personal history of other venous thrombosis and embolism; F17.200 Nicotine dependence, unspecified, uncomplicated; Z90.710 Acquired absence of both cervix and uterus
CPT/HCPCS: 36415; 80048; 80307; 82040; 84443; 84703; 85025; 99285

== ENCOUNTER 2020-06-19 11:43 | Emergency (ER) | payer MEDICARE, MEDICAID ==
[~2020-06-19] VITALS: Ht 162.6 cm; Wt 81.6 kg
[~2020-06-19 11:43] MED LIST changes: +EPIN0.1S2 IM; +FURO40TA6 PO; +RAME8TAB19 PO; +TIZA2CAP PO; +VARE0.5T PO
[2020-06-19 12:26] LABS: BASOPHILS % (AUTO) 1 % (0-1); EOSINOPHILS % (AUTO) 2 % (1-7); LYMPHOCYTES % (AUTO) 22 % (22-44); MEAN CORPUSCULAR HEMOGLOBIN 27.8 pg (27.0-34.8); MEAN CORPUSCULAR HGB CONC 32.3 g/dL (32.4-35.8); MEAN PLATELET VOLUME 8.2 fL (7.4-10.4); MONOCYTES % (AUTO) 7 % (2-9); NEUTROPHILS % (AUTO) 68 % (42-75); PLATELET COUNT 290 x10^3/uL (130-400); RED BLOOD COUNT 4.68 x10^6/uL (3.82-5.3); RED CELL DISTRIBUTION WIDTH 23.5 % (9.6-15.2)
[2020-06-19 12:33] LABS: MD NO
[2020-06-19 12:34] LABS: ALANINE AMINOTRANSFERASE 22 U/L (12-78); ALBUMIN 3.7 g/dL (3.4-5.0); ANION GAP 7 mmol/L (5-15); CALCIUM 9.2 mg/dL (8.5-10.1); CHLORIDE 111 mmol/L (98-107); CREATININE 0.97 mg/dL (0.55-1.02)
[2020-06-19 12:37] LABS: ALKALINE PHOSPHATASE 186 U/L (45-117); BILIRUBIN,TOTAL 0.3 mg/dL (0.2-1.0); TOTAL PROTEIN 8.7 g/dL (6.4-8.2)
[2020-06-19 12:43] LABS: INTERNATIONAL NORMALIZED RATIO 1.06 (0.93-1.1); PROTHROMBIN TIME 11.2 Seconds (9.6-11.5)
[2020-06-19 13:15] LABS: MICROSCOPIC INDICATED
[2020-06-19] MEDS ORDERED: CEFTRIAXONE 250 MG ONE ×2 (13:28→13:29)
[2020-06-19] MEDS ORDERED: HYDROcodone/APAP 5/325 TABLET ONE (13:29)
[2020-06-19] MEDS ORDERED: HYDROcodone/APAP 5/325 TABLET PO ONE (13:30)
[2020-06-19] MEDS ORDERED: CEFTRIAXONE 1,000 MG IM ONE (13:30)
[2020-06-19 14:12] VITALS: BP 119/80
== END 2020-06-19 14:14 ==
LOC: ED 12:40
DX: N30.01 Acute cystitis with hematuria (principal); I10 Essential (primary) hypertension; I25.2 Old myocardial infarction; E03.9 Hypothyroidism, unspecified; K21.9 Gastro-esophageal reflux disease without esophagitis; Z90.710 Acquired absence of both cervix and uterus; Z86.718 Personal history of other venous thrombosis and embolism
CPT/HCPCS: 36415; 80053; 81001; 85025; 85610; 85730; 87077; 87086; 96372; 99285; J0696; 87186

== ENCOUNTER → 2021-01-24 | Outpatient (CLI) | payer MEDICARE, MEDICAID ==
[~2021-01-24] MED LIST changes: -CLIN300C8 PO; +CLIN300C9 PO; +DIVA500T2 PO; +FLUT9.9S NAS; +MULT-449 PO
[2021-01-24 09:30] LABS: BASOPHILS % (AUTO) 1 % (0-1); EOSINOPHILS % (AUTO) 4 % (1-7); LYMPHOCYTES % (AUTO) 49 % (22-44); MEAN CORPUSCULAR HEMOGLOBIN 31.2 pg (27.0-34.8); MEAN CORPUSCULAR HGB CONC 33.6 g/dL (32.4-35.8); MEAN PLATELET VOLUME 8.5 fL (7.4-10.4); MONOCYTES % (AUTO) 7 % (2-9); NEUTROPHILS % (AUTO) 39 % (42-75); PLATELET COUNT 222 x10^3/uL (130-400); RED BLOOD COUNT 4.75 x10^6/uL (3.82-5.3); RED CELL DISTRIBUTION WIDTH 13.6 % (9.6-15.2)
[2021-01-24 09:40] LABS: ALANINE AMINOTRANSFERASE 59 U/L (12-78); ALBUMIN 3.4 g/dL (3.4-5.0); ANION GAP 5 mmol/L (5-15); CALCIUM 9.2 mg/dL (8.5-10.1); CHLORIDE 110 mmol/L (98-107); CREATININE 0.63 mg/dL (0.55-1.02)
[2021-01-24 09:42] LABS: INTERNATIONAL NORMALIZED RATIO 1.15 (0.93-1.1); PROTHROMBIN TIME 12.3 Seconds (9.6-11.5)
[2021-01-24 09:43] LABS: ALKALINE PHOSPHATASE 117 U/L (45-117); BILIRUBIN,TOTAL 0.2 mg/dL (0.2-1.0); TOTAL PROTEIN 7.6 g/dL (6.4-8.2)
[2021-01-24 10:01] LABS: MD SCAN
== END | disposition home or self-care (01) ==
LOC: STAR 07:57
PROVIDERS: ATTEND Neurological Surgery
DX: Z01.812 Encounter for preprocedural laboratory examination (principal); Z01.810 Encounter for preprocedural cardiovascular examination; Z01.811 Encounter for preprocedural respiratory examination; R79.1 Abnormal coagulation profile; R82.90 Unspecified abnormal findings in urine; R94.31 Abnormal electrocardiogram [ECG] [EKG]; M48.061 Spinal stenosis, lumbar region without neurogenic claudication; M47.816 Spondylosis without myelopathy or radiculopathy, lumbar region
CPT/HCPCS: 36415; 80053; 85025; 85610; 85730

== ENCOUNTER 2021-01-28 07:41 | Outpatient (CLI) | payer MEDICARE, MEDICAID ==
[2021-02-03] MEDS ORDERED: CEPH-376 PO (12:54)
[2021-02-03] MEDS ORDERED: RIVA15TA PO (12:54)
[2021-02-03] MEDS ORDERED: DOXY100T PO (12:54)
== END 2021-01-28 23:59 | disposition home or self-care (01) ==
LOC: RAD 07:41
PROVIDERS: ATTEND Physician Assistant Surgical
DX: Z01.812 Encounter for preprocedural laboratory examination (principal); Z20.822 Contact with and (suspected) exposure to COVID-19; Z01.810 Encounter for preprocedural cardiovascular examination; Z01.811 Encounter for preprocedural respiratory examination; M48.061 Spinal stenosis, lumbar region without neurogenic claudication; M43.06 Spondylolysis, lumbar region; R79.1 Abnormal coagulation profile; R94.31 Abnormal electrocardiogram [ECG] [EKG]; R82.90 Unspecified abnormal findings in urine; R22.41 Localized swelling, mass and lump, right lower limb; J94.8 Other specified pleural conditions; M48.54XA Collapsed vertebra, not elsewhere classified, thoracic region, initial encounter for fracture; I21.19 ST elevation (STEMI) myocardial infarction involving other coronary artery of inferior wall
CPT/HCPCS: 71046; 72110; 93005; 93971; U0003; U0005

== ENCOUNTER → 2021-01-29 | Outpatient (CLI) | payer MEDICARE, MEDICAID | END | disposition home or self-care (01) | LOC: RAD 16:02 | PROVIDERS: ATTEND Physician Assistant Surgical | DX: D17.1 Benign lipomatous neoplasm of skin and subcutaneous tissue of trunk (principal); R91.8 Other nonspecific abnormal finding of lung field | CPT/HCPCS: 71250 ==

== ENCOUNTER 2021-02-10 01:17 | Inpatient (IN) | payer MEDICARE, MEDICAID ==
[~2021-02-10] VITALS: Ht 162.6 cm; Wt 98.5 kg
[~2021-02-10 01:17] MED LIST changes: +CEPH-376 PO; +DOXY100T PO
[2021-02-10] MEDS ORDERED: OMNIPAQUE 350 MG/ML, 100ML BOTTLE ONE (01:30)
--- NOTE | 2021-02-10 01:35 | NUR ---
PT ARRIVED TO ER AND TAKEN STRAIGHT TO CT SCAN, AFTER MD GAVE A LOOK TO PT, AND ASSESED NEURO STATUS. PT AWAKE AND ALERT, MILD SLURRED SPEECH NOTED. PT IN A LOT OF PAIN R/T MULTIPLE BACK SURGERIES. PT FINISHED IN CT SCAN AND BROUGHT BACK TO T4 ROOM. PT ON CR MONITOR AND EKG DONE, AND PIV TO RIGHT FOREARM INTACT, 20G CATH. FLUSHES EASILY.
--- NOTE | 2021-02-10 01:37 | NUR ---
PT MORE COMFORTABLE IN BED WITH NO MOVEMENT HAPPENING, AND HEAD OF BED AT 30DEG ELEVATED. EKG IN PROCESS.
--- NOTE | 2021-02-10 01:52 | NUR ---
NEUROLOGY PAGED FOR 2ND TIME.
[2021-02-10 01:56] LABS: BASOPHILS % (AUTO) 0 % (0-1); EOSINOPHILS % (AUTO) 3 % (1-7); LYMPHOCYTES % (AUTO) 48 % (22-44); MEAN CORPUSCULAR HEMOGLOBIN 31.6 pg (27.0-34.8); MEAN CORPUSCULAR HGB CONC 33.9 g/dL (32.4-35.8); MEAN PLATELET VOLUME 8.5 fL (7.4-10.4); MONOCYTES % (AUTO) 13 % (2-9); NEUTROPHILS % (AUTO) 36 % (42-75); PLATELET COUNT 220 x10^3/uL (130-400); RED BLOOD COUNT 3.79 x10^6/uL (3.82-5.3); RED CELL DISTRIBUTION WIDTH 13.6 % (9.6-15.2)
--- NOTE | 2021-02-10 02:03 | NUR ---
PT CRYING AND C/O PAIN TO LOWER EXTREMITIES AND BACK. AWAITING ON NEUROLOGY TO CALL BACK AND PAGED THEM TWICE. PT HAS REDNESS TO LOWER PORTION OF LOWER LEG THAT IS CIRCUMFERENTIAL IN NATURE. PT HAS MILD SPOT OF REDNESS ON ANTERIOR PORTION OF LEFT LEG.
--- NOTE | 2021-02-10 02:10 | NUR ---
NEUROLOGY PAGED FOR 3RD TIME.
[2021-02-10 02:11] LABS: INTERNATIONAL NORMALIZED RATIO 1.1 (0.93-1.1); PROTHROMBIN TIME 11.7 Seconds (9.6-11.5)
--- NOTE | 2021-02-10 02:26 | NUR ---
AT THIS TIME, WE ARE STILL WAITING FOR NEUROLOGY TO CALL BACK. NEURO HAS BEEN PAGED NOW 4TH TIME. PT REMAINS IN A LOT OF PAIN, UNABLE TO MEDICATE UNTIL EVAL BY NEURO COMPLETE.
--- NOTE | 2021-02-10 02:27 | NUR ---
NEUROLOGY PAGED FOR 4TH TIME, DR. BILLINGS PAGED AT THIS TIME.
[2021-02-10] MEDS ORDERED: MORPHINE SULFATE 4 MG/ML, 1ML ONE (02:35)
[2021-02-10] MEDS ORDERED: ONDANSETRON 2MG/ML, 2ML ONE (02:35)
--- NOTE | 2021-02-10 02:45 | NUR ---
Dr. Corley called on Cell phone.
--- NOTE | 2021-02-10 02:49 | NUR ---
tr 04 code neuro cancelled @ 8053
[2021-02-10] MEDS ORDERED: MORPHINE SULFATE 4 MG/ML, 1ML IVPush PRN (03:00)
[2021-02-10] MEDS ORDERED: SODIUM CHLORIDE 0.9% 1,000 ML IV ONE (03:00)
[2021-02-10] MEDS ORDERED: ONDANSETRON 2MG/ML, 2ML IVPush ONE (03:00)
[2021-02-10] MEDS ORDERED: SENNA/DOCUSATE TABLET PO PRN (04:00)
[2021-02-10] MEDS ORDERED: LABETALOL 5MG/ML, 20ML IV PRN (04:00)
[2021-02-10] MEDS ORDERED: PROMETHAZINE 25 MG/ML, 1ML IM PRN (04:00)
[2021-02-10] MEDS ORDERED: ONDANSETRON 2MG/ML, 2ML IVPush PRN (04:00)
[2021-02-10] MEDS ORDERED: HYDROmorphone 2 MG/ML, 1ML IVPush ONE (04:00)
[2021-02-10] MEDS ORDERED: CALCIUM GLUCONATE 4.6 MEQ in SODIUM CHLORIDE 0.9% 50 ML IV ONE (04:30)
[2021-02-10 04:46] LABS: C-REACTIVE PROTEIN, QUANT 0.5 mg/dL (0.02-0.49)
[2021-02-10 04:57] VITALS: BP 142/79
[2021-02-10 05:17] LABS: HCT (SEDRATE) 35.3 % (34.6-47.8)
[2021-02-10 06:17] LABS: MICROSCOPIC NOT IND
[2021-02-10] MEDS: LEVOTHYROXINE 75 MCG TABLET PO SCH (06:20)
[2021-02-10] MEDS: GABAPENTIN 400 MG CAPSULE PO SCH ×4 (06:20→21:41)
[2021-02-10] MEDS: TIZANIDINE 4MG TABLET PO SCH ×4 (06:20→21:40)
[2021-02-10 06:40] VITALS: BP 149/93
[2021-02-10 06:48] LABS: AMPHETAMINE SCREEN, URINE Negative (Negative); BARBITURATE SCREEN, URINE Negative (Negative); BENZODIAZEPINE SCREEN, URINE Negative (Negative); CANNABINOID SCREEN, URINE Negative (Negative); COCAINE SCREEN, URINE Negative (Negative); METHADONE SCREEN, URINE Negative (Negative); OPIATE SCREEN, URINE Positive (Negative)
[2021-02-10] MEDS ORDERED: CEFTRIAXONE 2 GM in DEXTROSE 5% 50 ML IVPB SCH (08:30)
[2021-02-10 08:55] LABS: ANION GAP 12 mmol/L (5-15); CALCIUM 8.7 mg/dL (8.5-10.1); CHLORIDE 112 mmol/L (98-107); CREATININE 1.16 mg/dL (0.55-1.02)
[2021-02-10] MEDS ORDERED: RIVAROXABAN 15 MG TABLET PO SCH (09:00)
[2021-02-10] MEDS: HYDROmorphone 1 MG/ML, 1ML INJ IV PRN ×3 (09:13→21:41)
[2021-02-10] MEDS: DIVALPROEX 500 MG TABLET.DR PO SCH ×2 (09:14→21:41)
[2021-02-10] MEDS: ASPIRIN 81 MG TABLET CHEW PO/NG SCH ×2 (09:14→09:19)
[2021-02-10] MEDS: OMEPRAZOLE 20 MG CAPSULE.DR PO SCH ×2 (09:14→21:40)
[2021-02-10] MEDS: METOPROLOL TARTRATE 25 MG TAB PO SCH ×2 (09:14→21:41)
[2021-02-10] MEDS: DOXYCYCLINE 100 MG in DEXTROSE 5% 250 ML IV SCH ×2 (12:49→23:44)
[2021-02-10 14:35] VITALS: BP 138/90
[2021-02-10] MEDS: ACETAMINOPHEN 650 MG/20.3 ML UDC PO PRN (18:48)
[2021-02-10 19:20] VITALS: BP 165/98
[2021-02-10] MEDS ORDERED: ATORVASTATIN 80 MG TABLET PO SCH (21:00)
[2021-02-10] MEDS: RIVAROXABAN 15 MG TABLET PO SCH (21:41)
[2021-02-11 00:53] VITALS: BP 168/99
[2021-02-11] MEDS: HYDROmorphone 1 MG/ML, 1ML INJ IV PRN ×2 (04:41→11:05)
[2021-02-11 05:05] LABS: CHOL/HDL RATIO 2.7; LDL/HDL RATIO 1.4 (0.5-3.0)
[2021-02-11] MEDS: LEVOTHYROXINE 75 MCG TABLET PO SCH (05:28)
[2021-02-11] MEDS: GABAPENTIN 400 MG CAPSULE PO SCH ×2 (05:28→11:05)
[2021-02-11] MEDS: TIZANIDINE 4MG TABLET PO SCH ×2 (05:28→11:05)
[2021-02-11 07:11] LABS: ANION GAP 7 mmol/L (5-15); CHLORIDE 108 mmol/L (98-107); CREATININE 0.81 mg/dL (0.55-1.02)
[2021-02-11 08:32] VITALS: BP 183/110
[2021-02-11] MEDS: METOPROLOL TARTRATE 25 MG TAB PO SCH (09:08)
[2021-02-11] MEDS: OMEPRAZOLE 20 MG CAPSULE.DR PO SCH (09:08)
[2021-02-11] MEDS: RIVAROXABAN 15 MG TABLET PO SCH (09:08)
[2021-02-11] MEDS: ACETAMINOPHEN 650 MG/20.3 ML UDC PO PRN (09:09)
[2021-02-11] MEDS: DIVALPROEX 500 MG TABLET.DR PO SCH (09:10)
[2021-02-23] MEDS ORDERED: RIVAROXABAN 20 MG TABLET PO SCH (09:00)
== END 2021-02-11 11:43 | disposition home or self-care (01) | DRG 101 ==
LOC: EDBD → MERGE 01:17 → ED 03:10 → EDIP 03:12 → 4WST 04:07
PROVIDERS: ADMIT Family Medicine; ATTEND Family Medicine
DX: G40.909 Epilepsy, unspecified, not intractable, without status epilepticus (principal); L03.115 Cellulitis of right lower limb; F84.0 Autistic disorder; I82.531 Chronic embolism and thrombosis of right popliteal vein; J96.11 Chronic respiratory failure with hypoxia; E03.9 Hypothyroidism, unspecified; E66.9 Obesity, unspecified; E83.51 Hypocalcemia; E87.5 Hyperkalemia; F17.200 Nicotine dependence, unspecified, uncomplicated; F31.9 Bipolar disorder, unspecified; F41.9 Anxiety disorder, unspecified; G47.33 Obstructive sleep apnea (adult) (pediatric); G89.29 Other chronic pain; I10 Essential (primary) hypertension; I87.8 Other specified disorders of veins; R32 Unspecified urinary incontinence; R29.810 Facial weakness; W18.39XA Other fall on same level, initial encounter; I25.2 Old myocardial infarction; Z98.84 Bariatric surgery status; Z90.710 Acquired absence of both cervix and uterus; D64.9 Anemia, unspecified; Z86.73 Personal history of transient ischemic attack (TIA), and cerebral infarction without residual deficits; Z86.711 Personal history of pulmonary embolism; Z79.891 Long term (current) use of opiate analgesic; Z79.01 Long term (current) use of anticoagulants; Z82.49 Family history of ischemic heart disease and other diseases of the circulatory system; Y93.89 Activity, other specified; Y92.89 Other specified places as the place of occurrence of the external cause; Y99.8 Other external cause status; Z88.8 Allergy status to other drugs, medicaments and biological substances; Z88.5 Allergy status to narcotic agent; Z88.1 Allergy status to other antibiotic agents
CPT/HCPCS: 36415; 70450; 70496; 70498; 80047; 80048; 80061; 80164; 80307; 80320; 81003; 83880; 84443; 85025; 85610; 85651; 85730; 86140; 93005; 93306; 95819; 96374; 96376; G0378; J0610; J0696; J1170; J2405; J2550; J7060; Q9967; G0480; J2270; J7030; Q0177

== ENCOUNTER 2021-02-14 14:22 | Emergency (ER) | payer MEDICARE, MEDICAID ==
[~2021-02-14] VITALS: Ht 162.6 cm; Wt 94.8 kg
[~2021-02-14 14:22] MED LIST changes: +OLAN5TAB69 PO; -OLAN5TAB9 PO
--- NOTE | 2021-02-14 14:30 | NUR ---
code neuro paged 1419 neuro paged 1420 patient arrived 1424
[2021-02-14 14:36] LABS: BASOPHILS % (AUTO) 1 % (0-1); EOSINOPHILS % (AUTO) 4 % (1-7); LYMPHOCYTES % (AUTO) 43 % (22-44); MEAN CORPUSCULAR HEMOGLOBIN 31.4 pg (27.0-34.8); MEAN CORPUSCULAR HGB CONC 33.5 g/dL (32.4-35.8); MEAN PLATELET VOLUME 8.5 fL (7.4-10.4); MONOCYTES % (AUTO) 8 % (2-9); NEUTROPHILS % (AUTO) 45 % (42-75); PLATELET COUNT 270 x10^3/uL (130-400); RED BLOOD COUNT 4.03 x10^6/uL (3.82-5.3); RED CELL DISTRIBUTION WIDTH 13.6 % (9.6-15.2)
[2021-02-14 14:53] LABS: INTERNATIONAL NORMALIZED RATIO 1.08 (0.93-1.1); PROTHROMBIN TIME 11.5 Seconds (9.6-11.5)
--- NOTE | 2021-02-14 15:03 | NUR ---
BIB [facility] FROM HOME FOR PARANOIA AND ANXIETY. AFTER INITIAL REPORT TO [facility], PT DEVELOPED SLURRED WORDS. PT HYPERTENSIVE FOR [facility]. IV ESTABLISHED EN ROUTE. PT REPORTS SHE HAS INCREASED STRESS OF LATE. RECENTLY HOSPITALIZED AND HAS DVT'S WHICH SHE IS TAKING XARELTO FOR. PT ASKS TO GO HOME, ASKS FOR PHONE TO CHECK ON DOG. PT ALSO C/O SANDY X2 HOURS. PT FALLS ASLEEP DURING PAUSES IN ASSESSMENT QUESTIONING. NAD NOTED AT THIS TIME. NO WOB NOTED. PERRL. MAEX4, PT REPORTS RECENT WEAKNESS.
--- NOTE | 2021-02-14 15:10 | NUR ---
RN ATTEMPTING TO HELP PT LOCATE HER MED LIST ON HER PHONE.
[2021-02-14] MEDS ORDERED: D-MANNOSE PO (15:14)
[2021-02-14] MEDS ORDERED: DULO60CA7 PO (15:16)
--- NOTE | 2021-02-14 15:22 | NUR ---
DURING MEDICATION REVIEW ON PT'S PHONE, RN NOTED THAT PT HAS NOTE TO "BUMP" CYMBALTA FROM 30 MG TO 60 MG 02/12/21. BESIDES THIS RECENT INCREASE, PT DENIES TAKING ANY ADDITIONAL MEDICATIONS. DR TIERNEY NOTIFIED OF RECENT CHANGE IN PT'S MEDICATION DOSAGE. UNCONFIRMED WHO GUIDED PT TO DOUBLE HER DOSE OF THIS MEDICATION.
--- NOTE | 2021-02-14 15:27 | NUR ---
PT NOW REPORTS TAKING X4 BENADRYL LAST NIGHT 100 MG. PT REQUESTS PUREWICK OR COMMODE, PREFERRING PUREWICK.
--- NOTE | 2021-02-14 15:32 | NUR ---
DISCUSSION WITH MANE ARIZA IN REGARDS TO PT'S HX AND RECENT INCREASE IN CYMBALTA. PER DR TIERNEY, PT INITIALLY WAS DESCRIBING PEOPLE BREAKING INTO HER HOUSE, BUT SHE WAS UNCERTAIN IF THE PEOPLE WERE REAL. PT DENIES SI/HI. MANE ARIZA AWARE OF ALL PT'S CLAIMS.
--- NOTE | 2021-02-14 16:09 | NUR ---
REPORT FROM GOSIA YEE FOR TRANSFER OF PATIENT CARE.
--- NOTE | 2021-02-14 16:34 | NUR ---
PATIENT MOVED TO ROOM 18 VIA GURNEY, ATTACHED TO MONITOR, VSS, SIDE RAILS X2, CALL LIGHT WITHIN REACH.
--- NOTE | 2021-02-14 17:24 | NUR ---
ERMD AT BEDSIDE TO DISCUSS POC.
[2021-02-14 17:39] VITALS: BP 128/75
--- NOTE | 2021-02-14 17:57 | NUR ---
IV removed with tip intact. Patient given discharge instructions and they have confirmed that they understand the instructions. Patient ambulatory with steady gait and use of walker. NAD, all questions answered appropriately, denies additional needs at this time. No personal belongings left in room after discharge. Patient's caregiver here to drive patient home.
== END 2021-02-14 17:58 | disposition home or self-care (01) ==
LOC: ED 14:33
DX: F43.0 Acute stress reaction (principal); R47.9 Unspecified speech disturbances; R94.31 Abnormal electrocardiogram [ECG] [EKG]; I10 Essential (primary) hypertension; I25.2 Old myocardial infarction; E03.9 Hypothyroidism, unspecified; F17.200 Nicotine dependence, unspecified, uncomplicated; Z90.710 Acquired absence of both cervix and uterus
CPT/HCPCS: 36415; 70450; 80047; 85025; 85610; 85730; 93005; 99285